=== PATIENT | female | born 1955 | race Caucasian/White ===

== ENCOUNTER 2018-01-19 14:26 | Observation (INO) | payer MEDICARE, OTHER ==
[~2018-01-19] VITALS: Ht 307.3 cm; Wt 42.6 kg
[~2018-01-19 14:26] MED LIST: ACET500T68 PO; CALC300T5 PO; CEPH-264 PO; CEPH250S2 PO; CLON1PAT9 TD; CLON1TAB3 PO; DIAZ2.5K2 RC; DOCU50LI PO; KCL 10% PO; LACO10SO PO; LACO50TA PO; LEVE100S18 PO; LEVO500T8 PO; LOPE1LIQ11 PO; LOPE1LIQ7 PO; LOPE1TAB4 PO; LORA2ORA2 PO; MAGN400O7 PO; ONDA4TAB10 SL; PHEN10VI PO; POLY255P PO; PROM25TA10 PO
[2018-01-19 15:10] LABS: BASO # 0.1 x10^3/uL (0.0-0.2); BASO % 2 % (0-3); EOS # 0.1 x10^3/uL (0.0-0.7); EOS % 3 % (0-3); HEMATOCRIT 43.8 % (36.0-47.0); HEMOGLOBIN 14.5 g/dL (12.0-15.5); LYMPH # 1.4 x10^3/uL (1.0-4.8); LYMPH % 29 % (24-48); MEAN CORPUSCULAR HEMOGLOBIN 30 pg (25-35); MEAN CORPUSCULAR HGB CONC 33 g/dL (31-37); MEAN CORPUSCULAR VOLUME 91 fL (79-100); MONO # 0.4 x10^3/uL (0.0-1.1); MONO % 8 % (0-9); NEUT # 2.8 x10^3uL (1.8-7.7); NEUT % 58 % (31-73); PLATELET COUNT 247 x10^3/uL (140-400); RED BLOOD COUNT 4.81 x10^6/uL (3.50-5.40); RED CELL DISTRIBUTION WIDTH 12.8 % (11.5-14.5); WHITE BLOOD COUNT 4.8 x10^3/uL (4.0-11.0)
[2018-01-19 15:21] LABS: CALCIUM 9.4 mg/dL (8.5-10.1); CREATININE 0.5 mg/dL (0.6-1.0); GFR 124.6; POTASSIUM 4.1 mmol/L (3.5-5.1); TOTAL BILIRUBIN 0.2 mg/dL (0.2-1.0); TOTAL PROTEIN 8.2 g/dL (6.4-8.2)
[2018-01-19 15:49] LABS: BACTERIA,URINE MOD /HPF (0-FEW); BILIRUBIN,URINE NEG (NEG); CLARITY,URINE CLOUDY; COLOR,URINE YELLOW; GLUCOSE,URINE NEG (NEG); NITRITE,URINE POS (NEG); UROBILINOGEN,URINE 2 mg/dL (0.2 mg/dL); WBC,URINE TNTC /HPF (0-4)
[2018-01-19] MEDS ORDERED: cefTRIAXone IV Push 1 GM VIAL. IVP ONE (16:00)
--- NOTE | 2018-01-19 16:05 | PHYS DOC ---
Past History Past Medical History: Seizure, Other Past Surgical History: No Surgical History, Other Smoking: Non-smoker Alcohol Use: None Drug Use: None Adult General Chief Complaint Chief Complaint: MULTIPLE COMPLAINTS HPI HPI Patient is a 62 year old F who presents with decreased level of responsiveness. Janna [facility] a [facility] her baseline is nonverbal. She is typically extremely agitated in particular in health care settings however starting this morning she was not as responsive as normal. Just prior to arrival her caregiver states that she had been intermittently responsive during the morning. She has no localizing symptoms. She has no recent medication changes. Review of Systems Review of Systems Unable to obtain review of systems due to baseline nonverbal status Family History Family History No pertinent family medical history was reported Current Medications Current Medications Current medications were reviewed Allergies Allergies Allergies Coded Allergies Type Severity Reaction Last Updated Verified No Known Drug Allergies 03/10/14 No Physical Exam Physical Exam Constitutional: Well developed, well nourished, no acute distress, non-toxic appearance. [] HENT: atraumatic Eyes: EOMI, conjunctiva normal, no discharge. [] Neck: Normal range of motion, no tenderness, supple, no stridor. [] Cardiovascular:Heart rate regular rhythm, Lungs & Thorax: Bilateral breath sounds clear to auscultation [] Abdomen: Bowel sounds normal, soft, no masses, no pulsatile masses. [] Mild suprapubic tenderness on palpation Skin: Warm, dry, no erythema, no rash. [] Extremities: Moves all extremities equally Exam was limited due to baseline mental status Current Patient Data Vital Signs Vital Signs Date Time Temp Pulse Resp B/P (MAP) Pulse Ox O2 Delivery O2 Flow Rate FiO2 01/19/18 16:26 98.9 54 18 97 Room Air Lab Results Laboratory Tests Test 01/19/18 15:00 White Blood Count 4.8 x10^3/uL (4.0-11.0) Red Blood Count 4.81 x10^6/uL (3.50-5.40) Hemoglobin 14.5 g/dL (12.0-15.5) Hematocrit 43.8 % (36.0-47.0) Mean Corpuscular Volume 91 fL (79-100) Mean Corpuscular Hemoglobin 30 pg (25-35) Mean Corpuscular Hemoglobin Concent 33 g/dL (31-37) Red Cell Distribution Width 12.8 % (11.5-14.5) Platelet Count 247 x10^3/uL (140-400) Neutrophils (%) (Auto) 58 % (31-73) Lymphocytes (%) (Auto) 29 % (24-48) Monocytes (%) (Auto) 8 % (0-9) Eosinophils (%) (Auto) 3 % (0-3) Basophils (%) (Auto) 2 % (0-3) Neutrophils # (Auto) 2.8 x10^3uL (1.8-7.7) Lymphocytes # (Auto) 1.4 x10^3/uL (1.0-4.8) Monocytes # (Auto) 0.4 x10^3/uL (0.0-1.1) Eosinophils # (Auto) 0.1 x10^3/uL (0.0-0.7) Basophils # (Auto) 0.1 x10^3/uL (0.0-0.2) Urine Collection Type U cath Urine Color Yellow Urine Clarity Cloudy Urine pH 6.0 Urine Specific [place] 1.020 Urine Protein 30 mg/dl (NEG-TRACE) Urine Glucose (UA) Neg mg/dL (NEG) Urine Ketones (Stick) Neg mg/dL (NEG) Urine Blood Small (NEG) Urine Nitrite Pos (NEG) Urine Bilirubin Neg (NEG) Urine Urobilinogen Dipstick 2 mg/dL (0.2 mg/dL) Urine Leukocyte Esterase Mod (NEG) Urine RBC 6-10 /HPF (0-2) Urine WBC Tntc /HPF (0-4) Urine Squamous Epithelial Cells None /LPF Urine Bacteria Mod /HPF (0-FEW) Sodium Level 148 mmol/L (136-145) H Potassium Level 4.1 mmol/L (3.5-5.1) Chloride Level 109 mmol/L (98-107) H Carbon Dioxide Level 31 mmol/L (21-32) Anion Gap 8 (6-14) Blood Urea Nitrogen 24 mg/dL (7-20) H Creatinine 0.5 mg/dL (0.6-1.0) L Estimated GFR (Cockcroft-Gault) 124.6 BUN/Creatinine Ratio 48 (6-20) H Glucose Level 86 mg/dL (70-99) Lactic Acid Level 1.3 mmol/L (0.4-2.0) Calcium Level 9.4 mg/dL (8.5-10.1) Total Bilirubin 0.2 mg/dL (0.2-1.0) Aspartate Amino Transferase (AST) 25 U/L (15-37) Alanine Aminotransferase (ALT) 27 U/L (14-59) Alkaline Phosphatase 179 U/L (46-116) H Total Protein 8.2 g/dL (6.4-8.2) Albumin 4.0 g/dL (3.4-5.0) Albumin/Globulin Ratio 1.0 (1.0-1.7) EKG EKG [] Radiology/Procedures Radiology/Procedures [] Course & Med Decision Making Course & Med Decision Making Pertinent Labs and Imaging studies reviewed. (See chart for details) [] Dragon Disclaimer Dragon Disclaimer This electronic medical record was generated, in whole or in part, using a voice recognition dictation system. Departure Departure: Impression: Primary Impression: UTI (urinary tract infection) Additional Impression: Altered mental status Disposition: ADMITTED INPATIENT Admitting Physician: Blane Miles Condition: STABLE Referrals: LAZARO CAMARGO MD (PCP) Problem Qualifiers Primary Impression: UTI (urinary tract infection) Urinary tract infection type: site unspecified Hematuria presence: with hematuria Qualified Codes: N39.0 - Urinary tract infection, site not specified ; R31.9 - Hematuria, unspecified Additional Impression: Altered mental status Altered mental status type: unspecified Qualified Codes: R41.82 - Altered mental status, unspecified NIDIA DELGADO MD Jan 19, 2018 16:05
[2018-01-19] MEDS ORDERED: ONDANSETRON PF 4 MG/2 ML VIAL. IV PRN (17:45)
[2018-01-19] MEDS: LACTOBACILLUS RHAMNOSUS GG 1 CAPSULE. PO SCH (21:16)
[2018-01-20 06:27] VITALS: BP 181/79
[2018-01-20 06:59] LABS: BASO # 0.1 x10^3/uL (0.0-0.2); BASO % 1 % (0-3); EOS # 0.1 x10^3/uL (0.0-0.7); EOS % 2 % (0-3); HEMATOCRIT 39.5 % (36.0-47.0); HEMOGLOBIN 13.4 g/dL (12.0-15.5); LYMPH # 1.3 x10^3/uL (1.0-4.8); LYMPH % 26 % (24-48); MEAN CORPUSCULAR HEMOGLOBIN 31 pg (25-35); MEAN CORPUSCULAR HGB CONC 34 g/dL (31-37); MEAN CORPUSCULAR VOLUME 90 fL (79-100); MONO # 0.5 x10^3/uL (0.0-1.1); MONO % 9 % (0-9); NEUT % 62 % (31-73); PLATELET COUNT 230 x10^3/uL (140-400); RED BLOOD COUNT 4.39 x10^6/uL (3.50-5.40); RED CELL DISTRIBUTION WIDTH 12.5 % (11.5-14.5); WHITE BLOOD COUNT 4.9 x10^3/uL (4.0-11.0)
[2018-01-20 07:01] LABS: CALCIUM 8.9 mg/dL (8.5-10.1); CREATININE 0.5 mg/dL (0.6-1.0); GFR 124.6; POTASSIUM 3.9 mmol/L (3.5-5.1)
--- NOTE | 2018-01-20 07:58 | PDOC1 ---
History of Present Illness Reason for Visit: Not herself History of Present Illness Pt sent from [facility] due to "not acting herself." Pt is reportedly agitated regularly, and yesterday was more subdued. She was dx w/ a UTI in the ER, and the retirement felt uncomfortable taking her home. She has a hx of CP and epilepsy. She is non-verbal. She refuses to let me examine her, grabbing my stethoscope and throwing it at me. 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[employer]: Seizure Musculoskeletal: Other (CP) Past Surgical History: No pertinent history Family History: No pertinent hx Past Social History Smoke: No Alcohol: none Drugs: None Lives: Alone Review of Systems Review Of Systems ROS unobtainable due to pt's non-verbal status Allergies: Coded Allergies: No Known Drug Allergies (Unverified , 03/10/14) Medications Current Medications Ceftriaxone Sodium 1 gm/ Sodium Chloride 50 ml @ 100 mls/hr 1X ONCE IV ; Start 01/19/18 at 16:00; Stop 01/19/18 at 16:29; Status UNV Ceftriaxone Sodium (Rocephin) 1 gm 1X ONCE IVP Last administered on 01/19/18at 16:05; Start 01/19/18 at 16:00; Stop 01/19/18 at 16:01; Status DC Ondansetron HCl (Zofran) 4 mg PRN Q4HRS PRN IV NAUSEA/VOMITING; Start 01/19/18 at 17:45; Stop 01/20/18 at 17:44 Ceftriaxone Sodium 1 gm/ Sodium Chloride 50 ml @ 100 mls/hr 1X ONCE IV ; Start 01/20/18 at 08:00; Stop 01/20/18 at 08:29; Status UNV Ceftriaxone Sodium (Rocephin) 1 gm 1X ONCE IVP ; Start 01/20/18 at 08:00; Stop 01/20/18 at 08:01 Lactobacillus Rhamnosus (Culturelle) 1 cap BID PO Last administered on at 21:16; Start 01/19/18 at 21:00 Active Scripts Active Cephalexin 250 Mg/5 Ml Susp.recon 10 Ml PO BID 5 Days Loperamide (Loperamide Hcl) 1 Mg/7.5 Ml Liquid 1 Mg PO TID PRN Zofran Odt (Ondansetron) 4 Mg Tab.rapdis 1 Tab SL Q8HRS PRN Reported Polyethylene Glycol 3350 255 Gm Powder 17 Gm PO DAILY PRN not given this admit LAST DOSE GIVEN: DATE: TIME: NEXT DOSE DUE: DATE: TODAY TIME: IF NEEDED Catapres-Tts 1 (Clonidine) 1 Each Patch.tdwk 1 Each TD WEEKLY LAST DOSE GIVEN: DATE: 02-13 TIME: NEXT DOSE DUE: DATE: 02-20 TIME: Imodium A-D (Loperamide Hcl) 1 Mg/7.5 Ml Liquid 2 Mg PO QID PRN LAST DOSE GIVEN: DATE: YESTERDAY TIME: AM NEXT DOSE DUE: DATE: TODAY TIME: IF NEEDED Clonazepam 1 Mg Tablet 1 Mg PO DAILY PRN LAST DOSE GIVEN: DATE: TODAY TIME: 9 AM NEXT DOSE DUE: DATE: TOMORROW TIME: AM Vimpat (Lacosamide) 10 Mg/1 Ml Solution 150 Mg PO BID LAST DOSE GIVEN: DATE: TODAY TIME: AM NEXT DOSE DUE: DATE: TODAY TIME: PM Lorazepam 2 Mg/1 Ml Oral.conc 2 Mg PO PRN Q6HRS PRN LAST DOSE GIVEN: DATE: YESTERDAY TIME: 9 PM NEXT DOSE DUE: DATE: TODAY TIME: WHEN NEEDED Levetiracetam 100 Mg/1 Ml Solution 1,500 Mg PO BID LAST DOSE GIVEN: DATE: TODAY TIME: AM NEXT DOSE DUE: DATE: TODAY TIME: PM Docusate Sodium 50 Mg/5 Ml Liquid 100 Mg PO BID LAST DOSE GIVEN: DATE: TIME: NEXT DOSE DUE: DATE: RESUME TIME: WHEN NEEDED Exam Vital Signs Vital Signs Date Time Temp Pulse Resp B/P (MAP) Pulse Ox O2 Delivery O2 Flow Rate FiO2 01/20/18 06:27 61 20 181/79 (113) 96 01/19/18 19:48 patient refused 01/19/18 16:26 98.9 General Appearance: Alert, Other (Uncooperative. No distress, much more agitated per staff) HEENT: Atraumatic, Mucous membr. moist/pink Respiratory: Other (No resp distress) Psych/Mental Status: Other (Non-verbal, MAEEW) Assessment/Plan Assessment/Plan 1. UTI: Pt on Rocephin. D/c later today w/ Keflex. Culture pending. 2. CP/Epilepsy: Cont home meds. 3. Disp: D/c today, pt on observation, appears back to baseline. COURSE Allergies Coded Allergies Type Severity Reaction Last Updated Verified No Known Drug Allergies 03/10/14 No Laboratory Tests Test 01/19/18 15:00 01/20/18 06:19 White Blood Count 4.8 x10^3/uL (4.0-11.0) 4.9 x10^3/uL (4.0-11.0) Red Blood Count 4.81 x10^6/uL (3.50-5.40) 4.39 x10^6/uL (3.50-5.40) Hemoglobin 14.5 g/dL (12.0-15.5) 13.4 g/dL (12.0-15.5) Hematocrit 43.8 % (36.0-47.0) 39.5 % (36.0-47.0) Mean Corpuscular Volume 91 fL (79-100) 90 fL (79-100) Mean Corpuscular Hemoglobin 30 pg (25-35) 31 pg (25-35) Mean Corpuscular Hemoglobin Concent 33 g/dL (31-37) 34 g/dL (31-37) Red Cell Distribution Width 12.8 % (11.5-14.5) 12.5 % (11.5-14.5) Platelet Count 247 x10^3/uL (140-400) 230 x10^3/uL (140-400) Neutrophils (%) (Auto) 58 % (31-73) 62 % (31-73) Lymphocytes (%) (Auto) 29 % (24-48) 26 % (24-48) Monocytes (%) (Auto) 8 % (0-9) 9 % (0-9) Eosinophils (%) (Auto) 3 % (0-3) 2 % (0-3) Basophils (%) (Auto) 2 % (0-3) 1 % (0-3) Neutrophils # (Auto) 2.8 x10^3uL (1.8-7.7) 3.0 x10^3uL (1.8-7.7) Lymphocytes # (Auto) 1.4 x10^3/uL (1.0-4.8) 1.3 x10^3/uL (1.0-4.8) Monocytes # (Auto) 0.4 x10^3/uL (0.0-1.1) 0.5 x10^3/uL (0.0-1.1) Eosinophils # (Auto) 0.1 x10^3/uL (0.0-0.7) 0.1 x10^3/uL (0.0-0.7) Basophils # (Auto) 0.1 x10^3/uL (0.0-0.2) 0.1 x10^3/uL (0.0-0.2) Urine Collection Type U cath Urine Color Yellow Urine Clarity Cloudy Urine pH 6.0 Urine Specific [place] 1.020 Urine Protein 30 mg/dl (NEG-TRACE) Urine Glucose (UA) Neg mg/dL (NEG) Urine Ketones (Stick) Neg mg/dL (NEG) Urine Blood Small (NEG) Urine Nitrite Pos (NEG) Urine Bilirubin Neg (NEG) Urine Urobilinogen Dipstick 2 mg/dL (0.2 mg/dL) Urine Leukocyte Esterase Mod (NEG) Urine RBC 6-10 /HPF (0-2) Urine WBC Tntc /HPF (0-4) Urine Squamous Epithelial Cells None /LPF Urine Bacteria Mod /HPF (0-FEW) Sodium Level 148 mmol/L (136-145) 146 mmol/L (136-145) Potassium Level 4.1 mmol/L (3.5-5.1) 3.9 mmol/L (3.5-5.1) Chloride Level 109 mmol/L (98-107) 108 mmol/L (98-107) Carbon Dioxide Level 31 mmol/L (21-32) 33 mmol/L (21-32) Anion Gap 8 (6-14) 5 (6-14) Blood Urea Nitrogen 24 mg/dL (7-20) 15 mg/dL (7-20) Creatinine 0.5 mg/dL (0.6-1.0) 0.5 mg/dL (0.6-1.0) Estimated GFR (Cockcroft-Gault) 124.6 124.6 BUN/Creatinine Ratio 48 (6-20) Glucose Level 86 mg/dL (70-99) 85 mg/dL (70-99) Lactic Acid Level 1.3 mmol/L (0.4-2.0) Calcium Level 9.4 mg/dL (8.5-10.1) 8.9 mg/dL (8.5-10.1) Total Bilirubin 0.2 mg/dL (0.2-1.0) Aspartate Amino Transf (AST/SGOT) 25 U/L (15-37) Alanine Aminotransferase (ALT/SGPT) 27 U/L (14-59) Alkaline Phosphatase 179 U/L (46-116) Total Protein 8.2 g/dL (6.4-8.2) Albumin 4.0 g/dL (3.4-5.0) Albumin/Globulin Ratio 1.0 (1.0-1.7) Current Medications Medications (Trade) Dose Ordered Sig/Wm Route PRN Reason Start Time Stop Time Status Last Admin Dose Admin Ceftriaxone Sodium 1 gm/ Sodium Chloride 50 ml @ 100 mls/hr 1X ONCE IV 01/19/18 16:00 01/19/18 16:29 UNV Ceftriaxone Sodium (Rocephin) 1 gm 1X ONCE IVP 01/19/18 16:00 01/19/18 16:01 DC 01/19/18 16:05 Ondansetron HCl (Zofran) 4 mg PRN Q4HRS PRN IV NAUSEA/VOMITING 01/19/18 17:45 01/20/18 17:44 Ceftriaxone Sodium 1 gm/ Sodium Chloride 50 ml @ 100 mls/hr 1X ONCE IV 01/20/18 08:00 01/20/18 08:29 UNV Ceftriaxone Sodium (Rocephin) 1 gm 1X ONCE IVP 01/20/18 08:00 01/20/18 08:01 Lactobacillus Rhamnosus (Culturelle) 1 cap BID PO 01/19/18 21:00 01/19/18 21:16 Vital Signs Date Time Temp Pulse Resp B/P (MAP) Pulse Ox O2 Delivery O2 Flow Rate FiO2 01/20/18 06:27 61 20 181/79 (113) 96 01/19/18 19:48 patient refused 01/19/18 16:26 98.9 GLORIA NINO MD Jan 20, 2018 07:58
[2018-01-20] MEDS ORDERED: LOPERAMIDE HCL 1 MG PO PRN (08:00)
[2018-01-20] MEDS ORDERED: LORazepam INTENSOL 2 MG/ML BOTTLE PO PRN (08:00)
[2018-01-20] MEDS ORDERED: ONDANSETRON ODT 4 MG TAB.RAPDIS PO PRN (08:00)
[2018-01-20] MEDS ORDERED: clonazePAM 1 MG TABLET PO PRN (08:00)
[2018-01-20] MEDS ORDERED: cefTRIAXone IV Push 1 GM VIAL. IVP ONE (08:00)
[2018-01-20] MEDS ORDERED: LOPERAMIDE 2 MG CAPSULE PO PRN (08:15)
[2018-01-20] MEDS ORDERED: POLYETHYLENE GLYCOL 3350 17 GM PACKET. PO PRN (09:00)
[2018-01-20] MEDS ORDERED: LORazepam 2 MG/ML VIAL IV ONE (09:00)
[2018-01-20] MEDS ORDERED: cloNIDine TTS-1 1 PATCH PATCH TD SCH (09:00)
[2018-01-20] MEDS: LACTOBACILLUS RHAMNOSUS GG 1 CAPSULE. PO SCH ×2 (09:00→09:22)
[2018-01-20] MEDS: DOCUSATE 100 MG/10 ML SOLUTION. PO SCH ×2 (09:00→09:22)
[2018-01-20] MEDS: LACOSAMIDE 50 MG TABLET PO SCH ×2 (09:00→09:22)
[2018-01-20 11:00] VITALS: BP 101/78
--- NOTE | 2018-01-20 12:55 | DISCH ---
DISCHARGE INSTRUCTIONS-DC Condition on Discharge Condition on Discharge: Stable Problems: Activity after Discharge Activity Instructions for Disc: No restrictions Diet after Discharge Diet after Discharge: Regular Contacting the DR. after DC Call your doctor for: If your condition worsens Follow-Up Follow up with: F/u with PCP in 1-2 weeks GLORIA NINO MD Jan 20, 2018 12:55
--- NOTE | 2018-01-20 12:59 | PDOC3 ---
Discharge Summary Discharge Summary Date of Admission Date of Admission: Jan 19, 2018 at 16:50 Admitting Diagnosis UTI Altered mentation from baseline Seizure d/o MR Date of Discharge: Jan 20, 2018 Discharge Diagnosis UTI Altered mentation from baseline Seizure d/o MR Laboratory Findings Laboratory Tests Test 01/19/18 15:00 01/20/18 06:19 White Blood Count 4.8 x10^3/uL (4.0-11.0) 4.9 x10^3/uL (4.0-11.0) Red Blood Count 4.81 x10^6/uL (3.50-5.40) 4.39 x10^6/uL (3.50-5.40) Hemoglobin 14.5 g/dL (12.0-15.5) 13.4 g/dL (12.0-15.5) Hematocrit 43.8 % (36.0-47.0) 39.5 % (36.0-47.0) Mean Corpuscular Volume 91 fL (79-100) 90 fL (79-100) Mean Corpuscular Hemoglobin 30 pg (25-35) 31 pg (25-35) Mean Corpuscular Hemoglobin Concent 33 g/dL (31-37) 34 g/dL (31-37) Red Cell Distribution Width 12.8 % (11.5-14.5) 12.5 % (11.5-14.5) Platelet Count 247 x10^3/uL (140-400) 230 x10^3/uL (140-400) Neutrophils (%) (Auto) 58 % (31-73) 62 % (31-73) Lymphocytes (%) (Auto) 29 % (24-48) 26 % (24-48) Monocytes (%) (Auto) 8 % (0-9) 9 % (0-9) Eosinophils (%) (Auto) 3 % (0-3) 2 % (0-3) Basophils (%) (Auto) 2 % (0-3) 1 % (0-3) Neutrophils # (Auto) 2.8 x10^3uL (1.8-7.7) 3.0 x10^3uL (1.8-7.7) Lymphocytes # (Auto) 1.4 x10^3/uL (1.0-4.8) 1.3 x10^3/uL (1.0-4.8) Monocytes # (Auto) 0.4 x10^3/uL (0.0-1.1) 0.5 x10^3/uL (0.0-1.1) Eosinophils # (Auto) 0.1 x10^3/uL (0.0-0.7) 0.1 x10^3/uL (0.0-0.7) Basophils # (Auto) 0.1 x10^3/uL (0.0-0.2) 0.1 x10^3/uL (0.0-0.2) Urine Collection Type U cath Urine Color Yellow Urine Clarity Cloudy Urine pH 6.0 Urine Specific [place] 1.020 Urine Protein 30 mg/dl (NEG-TRACE) Urine Glucose (UA) Neg mg/dL (NEG) Urine Ketones (Stick) Neg mg/dL (NEG) Urine Blood Small (NEG) Urine Nitrite Pos (NEG) Urine Bilirubin Neg (NEG) Urine Urobilinogen Dipstick 2 mg/dL (0.2 mg/dL) Urine Leukocyte Esterase Mod (NEG) Urine RBC 6-10 /HPF (0-2) Urine WBC Tntc /HPF (0-4) Urine Squamous Epithelial Cells None /LPF Urine Bacteria Mod /HPF (0-FEW) Sodium Level 148 mmol/L (136-145) 146 mmol/L (136-145) Potassium Level 4.1 mmol/L (3.5-5.1) 3.9 mmol/L (3.5-5.1) Chloride Level 109 mmol/L (98-107) 108 mmol/L (98-107) Carbon Dioxide Level 31 mmol/L (21-32) 33 mmol/L (21-32) Anion Gap 8 (6-14) 5 (6-14) Blood Urea Nitrogen 24 mg/dL (7-20) 15 mg/dL (7-20) Creatinine 0.5 mg/dL (0.6-1.0) 0.5 mg/dL (0.6-1.0) Estimated GFR (Cockcroft-Gault) 124.6 124.6 BUN/Creatinine Ratio 48 (6-20) Glucose Level 86 mg/dL (70-99) 85 mg/dL (70-99) Lactic Acid Level 1.3 mmol/L (0.4-2.0) Calcium Level 9.4 mg/dL (8.5-10.1) 8.9 mg/dL (8.5-10.1) Total Bilirubin 0.2 mg/dL (0.2-1.0) Aspartate Amino Transf (AST/SGOT) 25 U/L (15-37) Alanine Aminotransferase (ALT/SGPT) 27 U/L (14-59) Alkaline Phosphatase 179 U/L (46-116) Total Protein 8.2 g/dL (6.4-8.2) Albumin 4.0 g/dL (3.4-5.0) Albumin/Globulin Ratio 1.0 (1.0-1.7) Hospital Course Pt sent from custodial due to not being as agitated as she usually is. Dx w/ UTI. Labs were unremarkable. Urine culture is pending. Pt treated w/ IV Rocephin. No signs of sepsis. By morning of 01/20, pt back to baseline. Will be sent home on 5 days of Keflex and the rest of her home meds. Pt should f/u with PCP in 1-2 weeks. Condition at Discharge: Stable Home Meds Active Scripts Cephalexin (CEPHALEXIN) 250 Mg/5 Ml Susp.recon, 10 ML PO BID for 5 Days, ML 0 Refills Prov:HALEIGH TREVIÑO MD 04/22/16 Loperamide Hcl (LOPERAMIDE) 1 Mg/7.5 Ml Liquid, 1 MG PO TID Y for DIARRHEA, # 120 LIQUID 0 Refills Prov:HALEIGH TREVIÑO MD 04/22/16 Ondansetron (ZOFRAN ODT) 4 Mg Tab.rapdis, 1 TAB SL Q8HRS Y for VOMITING, #10 TAB 0 Refills Prov:HALEIGH TREVIÑO MD 04/22/16 Reported Medications Polyethylene Glycol 3350 (POLYETHYLENE GLYCOL 3350) 255 Gm Powder, 17 GM PO DAILY Y for CONSTIPATION, #527 GM not given this admit LAST DOSE GIVEN: DATE: TIME: NEXT DOSE DUE: DATE: TODAY TIME: IF NEEDED 12/19/15 Clonidine (CATAPRES-TTS 1) 1 Each Patch.tdwk, 1 EACH TD WEEKLY for HIGH BLOOD PRESSURE LAST DOSE GIVEN: DATE: 02-13 TIME: NEXT DOSE DUE: DATE: 02-20 TIME: 12/19/15 Loperamide Hcl (IMODIUM A-D) 1 Mg/7.5 Ml Liquid, 2 MG PO QID Y for DIARRHEA LAST DOSE GIVEN: DATE: YESTERDAY TIME: AM NEXT DOSE DUE: DATE: TODAY TIME: IF NEEDED 11/04/15 Clonazepam (CLONAZEPAM) 1 Mg Tablet, 1 MG PO DAILY Y for ANXIETY / AGITATION LAST DOSE GIVEN: DATE: TODAY TIME: 9 AM NEXT DOSE DUE: DATE: TOMORROW TIME: AM 11/04/15 Lacosamide (VIMPAT) 10 Mg/1 Ml Solution, 150 MG PO BID for seizures LAST DOSE GIVEN: DATE: TODAY TIME: AM NEXT DOSE DUE: DATE: TODAY TIME: PM 11/04/15 Lorazepam (LORAZEPAM) 2 Mg/1 Ml Oral.conc, 2 MG PO PRN Q6HRS Y for ANXIETY / AGITATION LAST DOSE GIVEN: DATE: YESTERDAY TIME: 9 PM NEXT DOSE DUE: DATE: TODAY TIME: WHEN NEEDED 01/29/15 Levetiracetam (LEVETIRACETAM) 100 Mg/1 Ml Solution, 1500 MG PO BID for seizures LAST DOSE GIVEN: DATE: TODAY TIME: AM NEXT DOSE DUE: DATE: TODAY TIME: PM 01/29/15 Docusate Sodium (DOCUSATE SODIUM) 50 Mg/5 Ml Liquid, 100 MG PO BID for constipation LAST DOSE GIVEN: DATE: TIME: NEXT DOSE DUE: DATE: RESUME TIME: WHEN NEEDED 01/29/15 Inpatient Meds Current Medications Ceftriaxone Sodium 1 gm/ Sodium Chloride 50 ml @ 100 mls/hr 1X ONCE IV ; Start 01/19/18 at 16:00; Stop 01/19/18 at 16:29; Status UNV Ceftriaxone Sodium (Rocephin) 1 gm 1X ONCE IVP Last administered on 01/19/18at 16:05; Start 01/19/18 at 16:00; Stop 01/19/18 at 16:01; Status DC Ondansetron HCl (Zofran) 4 mg PRN Q4HRS PRN IV NAUSEA/VOMITING; Start 01/19/18 at 17:45; Stop 01/20/18 at 17:44 Ceftriaxone Sodium 1 gm/ Sodium Chloride 50 ml @ 100 mls/hr 1X ONCE IV ; Start 01/20/18 at 08:00; Stop 01/20/18 at 08:29; Status UNV Ceftriaxone Sodium (Rocephin) 1 gm 1X ONCE IVP Last administered on 01/20/18at 08:45; Start 01/20/18 at 08:00; Stop 01/20/18 at 08:01; Status DC Lactobacillus Rhamnosus (Culturelle) 1 cap BID PO Last administered on at 21:16; Start 01/19/18 at 21:00 Clonazepam (KlonoPIN) 1 mg DAILY PRN PO ANXIETY / AGITATION; Start 01/20/18 at 08:00 Clonidine HCl (Catapres Tts-1) 1 patch WEEKLY TD Last administered on at 09:29; Start 01/20/18 at 09:00 Docusate Sodium (Colace Solution) 100 mg BID PO ; Start 01/20/18 at 09:00 Levetiracetam (Keppra) 1,500 mg BID PO ; Start 01/20/18 at 09:00; Stop 01/20/18 at 09:00; Status DC Lorazepam (Ativan Intensol) 2 mg PRN Q6HRS PRN PO ANXIETY / AGITATION; Start at 08:00 Ondansetron HCl (Zofran Odt) 4 mg Q8HRS PRN PO VOMITING; Start 01/20/18 at 08: 00 Polyethylene Glycol (miraLAX) 17 gm PRN DAILY PRN PO CONSTIPATION; Start at 09:00 Lacosamide (Vimpat) 150 mg BID PO ; Start 01/20/18 at 09:00 Loperamide HCl (Imodium) 2 mg PRN QID PRN PO DIARRHEA; Start 01/20/18 at 08:15 Non-Formulary Medication (Loperamide Hcl (Loperamide)) 1 mg TID PRN PO DIARRHEA ; Start 01/20/18 at 08:00; Status UNV Lorazepam (Ativan) 0.5 mg 1X ONCE IV ; Start 01/20/18 at 09:00; Stop 01/20/18 at 09:01; Status DC Levetiracetam 500 mg/Sodium Chloride 100 ml @ 400 mls/hr Q12HR IV Last administered on 01/20/18at 09:19; Start 01/20/18 at 09:00 Active Scripts Active Cephalexin 250 Mg/5 Ml Susp.recon 10 Ml PO BID 5 Days Loperamide (Loperamide Hcl) 1 Mg/7.5 Ml Liquid 1 Mg PO TID PRN Zofran Odt (Ondansetron) 4 Mg Tab.rapdis 1 Tab SL Q8HRS PRN Reported Polyethylene Glycol 3350 255 Gm Powder 17 Gm PO DAILY PRN not given this admit LAST DOSE GIVEN: DATE: TIME: NEXT DOSE DUE: DATE: TODAY TIME: IF NEEDED Catapres-Tts 1 (Clonidine) 1 Each Patch.tdwk 1 Each TD WEEKLY LAST DOSE GIVEN: DATE: 02-13 TIME: NEXT DOSE DUE: DATE: 02-20 TIME: Imodium A-D (Loperamide Hcl) 1 Mg/7.5 Ml Liquid 2 Mg PO QID PRN LAST DOSE GIVEN: DATE: YESTERDAY TIME: AM NEXT DOSE DUE: DATE: TODAY TIME: IF NEEDED Clonazepam 1 Mg Tablet 1 Mg PO DAILY PRN LAST DOSE GIVEN: DATE: TODAY TIME: 9 AM NEXT DOSE DUE: DATE: TOMORROW TIME: AM Vimpat (Lacosamide) 10 Mg/1 Ml Solution 150 Mg PO BID LAST DOSE GIVEN: DATE: TODAY TIME: AM NEXT DOSE DUE: DATE: TODAY TIME: PM Lorazepam 2 Mg/1 Ml Oral.conc 2 Mg PO PRN Q6HRS PRN LAST DOSE GIVEN: DATE: YESTERDAY TIME: 9 PM NEXT DOSE DUE: DATE: TODAY TIME: WHEN NEEDED Levetiracetam 100 Mg/1 Ml Solution 1,500 Mg PO BID LAST DOSE GIVEN: DATE: TODAY TIME: AM NEXT DOSE DUE: DATE: TODAY TIME: PM Docusate Sodium 50 Mg/5 Ml Liquid 100 Mg PO BID LAST DOSE GIVEN: DATE: TIME: NEXT DOSE DUE: DATE: RESUME TIME: WHEN NEEDED Activity: as tolerated Diet: Regular Follow-up Plan F/u with PCP in 1-2 weeks. GLORIA NINO MD Jan 20, 2018 12:59
[2018-01-20] MEDS ORDERED: CEPH250S2 PO (14:01)
[2018-01-21] MEDS ORDERED: IBUP200T44 PO (20:02)
== END 2018-01-20 15:30 | disposition short-term general hospital (02) ==
LOC: ER 14:26 → 1 SOUTH 16:50
PROVIDERS: ADMIT Family Medicine; ATTEND Family Medicine
DX: N39.0 Urinary tract infection, site not specified (principal); G40.909 Epilepsy, unspecified, not intractable, without status epilepticus; K59.00 Constipation, unspecified
CPT/HCPCS: 96365; 96375; 96376; 99285; G0378; J0696; J1953; 36415; 80048; 80053; 81001; 83605; 85025; 87040; 87205; 87641; G0379

== ENCOUNTER 2018-01-20 18:30 | Emergency (ER) | payer MEDICARE, OTHER ==
[~2018-01-20] VITALS: Ht 307.3 cm; Wt 48.0 kg
[2018-01-20] MEDS ORDERED: LORazepam 2 MG/ML VIAL IV ONE (19:00)
--- NOTE | 2018-01-20 19:03 | PHYS DOC ---
Past History Past Medical History: Seizure, UTI, Other Past Surgical History: No Surgical History Smoking: Non-smoker Alcohol Use: None Drug Use: None Adult General Chief Complaint Chief Complaint: SEIZURE HPI HPI Patient is a 62-year-old female with a history of CP, dementia, nonverbal, recent UTI who presents here today secondary to seizure that lasted longer than baseline. Patient's caregivers at bedside reports patient has multiple seizures that usually lasts approximately 1 minute each however this seizure lasted longer than usual so the patient was dispatched to the ER for evaluation. Patient was just recently discharged from the hospital this morning with a diagnosis of urinary tract infection and was started on Rocephin IV in the ER and was discharged back to the facility on cephalexin. Patient is currently on Keppra for seizures and is currently on Ativan as well too. Patient was given Ativan IV to assist with sedation. Review of systems: Unable to assess secondary to patient being nonverbal Constitutional: Well developed, well nourished, no acute distress, non-toxic appearance. HENT: Normocephalic, atraumatic, Eyes: EOMI, conjunctiva normal, no discharge. Neck: Normal range of motion, no tenderness, supple, no stridor. Cardiovascular:Heart rate regular rhythm Lungs & Thorax: Bilateral breath sounds clear to auscultation no respiratory distress Abdomen: Bowel sounds normal, soft, no tenderness, no masses, no pulsatile masses. Skin: Warm, dry, no erythema, no rash. Back: No tenderness Extremities no edema. Neurologic: Alert and awake. Patient's baseline per caregiver. Psychologic: Affect normal/baseline 62-year-old female with a history significant for seizure disorder presents here today secondary to a seizure at the nursing facility that lasted slightly longer than baseline. In the ER the patient will have basic labs were drawn today. [His morning were normal however they will be repeated to make sure there are no reflexes or changes. Patient's vital signs are all within normal limits and per the caregiver the patient is completely back to baseline at present. Patient be given 1 mg of IV Ativan to assist with sedation. Here in the ED. If labs are unremarkable the patient remains stable in the ED and seizure-free she'll be stable for discharge back to her facility. Current Medications Current Medications Current Medications Medications (Trade) Dose Ordered Sig/Wm Start Time Stop Time Status Last Admin Dose Admin Lorazepam (Ativan) 1 mg 1X ONCE 01/20/18 19:00 01/20/18 19:01 Allergies Allergies Allergies Coded Allergies Type Severity Reaction Last Updated Verified No Known Drug Allergies 03/10/14 No Current Patient Data Vital Signs Vital Signs Date Time Temp Pulse Resp B/P (MAP) Pulse Ox O2 Delivery O2 Flow Rate FiO2 01/20/18 18:33 98.0 76 18 98 Room Air EKG EKG [] Radiology/Procedures Radiology/Procedures [] Course & Med Decision Making Course & Med Decision Making Pertinent Labs and Imaging studies reviewed. (See chart for details) [] Dragon Disclaimer Dragon Disclaimer This electronic medical record was generated, in whole or in part, using a voice recognition dictation system. Departure Departure: Impression: Primary Impression: Seizure Additional Impressions: Seizure disorder Urinary tract infection Breakthrough seizure Disposition: 03 XFER SNF Condition: STABLE Referrals: LAZARO CAMARGO MD (PCP) Patient Instructions: Seizure Disorder, Child, Generalized Tonic-Clonic Problem Qualifiers LEENA ARGUETA MD Jan 20, 2018 19:03
[2018-01-20 19:24] LABS: CALCIUM 9.3 mg/dL (8.5-10.1); CREATININE 0.5 mg/dL (0.6-1.0); GFR 124.6
[2018-01-20 19:30] LABS: HEMATOCRIT 42.1 % (36.0-47.0); HEMOGLOBIN 14.1 g/dL (12.0-15.5); MEAN CORPUSCULAR HEMOGLOBIN 30 pg (25-35); MEAN CORPUSCULAR HGB CONC 34 g/dL (31-37); MEAN CORPUSCULAR VOLUME 90 fL (79-100); RED CELL DISTRIBUTION WIDTH 12.2 % (11.5-14.5); WHITE BLOOD COUNT 6.7 x10^3/uL (4.0-11.0)
[2018-01-20 19:31] LABS: BASO % 1 % (0-3); EOS % 1 % (0-3); LYMPH # 2.1 x10^3/uL (1.0-4.8); LYMPH % 32 % (24-48); MONO # 0.7 x10^3/uL (0.0-1.1); MONO % 11 % (0-9); NEUT # 3.8 x10^3uL (1.8-7.7); NEUT % 56 % (31-73); PLATELET COUNT 180 x10^3/uL (140-400)
[2018-01-20 19:32] VITALS: BP 166/98
[2018-01-20 21:07] LABS: % EOS 1 % (0-5); % LYMPHS 33 % (24-48); % MONOS 5 % (0-10); % SEGS 58 % (35-66)
[2018-01-20 21:22] LABS: PLT ESTIMATE ADEQUATE (ADEQUATE)
[2018-01-20 21:23] LABS: % ATYL 3 % (0-0)
[2018-01-21] MEDS ORDERED: IBUP200T44 PO (20:02)
== END 2018-01-20 19:29 ==
LOC: ER 18:30
DX: G40.909 Epilepsy, unspecified, not intractable, without status epilepticus (principal); N39.0 Urinary tract infection, site not specified; F03.90 Unspecified dementia, unspecified severity, without behavioral disturbance, psychotic disturbance, mood disturbance, and anxiety; Z87.440 Personal history of urinary (tract) infections
CPT/HCPCS: 99285; J2060; 36415; 80048; 85007; 85025; 96374

== ENCOUNTER 2018-01-21 18:53 | Inpatient (IN) | payer MEDICARE, OTHER ==
[~2018-01-21] VITALS: Ht 154.9 cm; Wt 42.7 kg
[2018-01-21 19:53] VITALS: BP 170/77
[2018-01-21] MEDS ORDERED: IBUP200T44 PO (20:02)
[2018-01-21] MEDS ORDERED: ONDANSETRON ODT 4 MG TAB.RAPDIS PO PRN (20:15)
[2018-01-21] MEDS ORDERED: LORazepam INTENSOL 2 MG/ML BOTTLE PO PRN (20:15)
[2018-01-21] MEDS ORDERED: IBUPROFEN 100 MG/5 ML ORAL.SUSP. PO PRN (20:30)
[2018-01-21] MEDS ORDERED: LOPERAMIDE 2 MG/10 ML PO PRN (20:30)
[2018-01-21] MEDS: LACOSAMIDE 50 MG TABLET PO SCH (21:01)
[2018-01-21] MEDS: DOCUSATE 100 MG/10 ML SOLUTION. PO SCH (21:01)
[2018-01-21 23:23] VITALS: BP 167/81
[2018-01-22 05:30] VITALS: BP 171/74
[2018-01-22 06:57] LABS: BASO # 0.1 x10^3/uL (0.0-0.2); BASO % 2 % (0-3); EOS # 0.1 x10^3/uL (0.0-0.7); EOS % 2 % (0-3); HEMATOCRIT 40.3 % (36.0-47.0); HEMOGLOBIN 13.4 g/dL (12.0-15.5); LYMPH # 1.9 x10^3/uL (1.0-4.8); LYMPH % 40 % (24-48); MEAN CORPUSCULAR HEMOGLOBIN 30 pg (25-35); MEAN CORPUSCULAR HGB CONC 33 g/dL (31-37); MEAN CORPUSCULAR VOLUME 91 fL (79-100); MONO # 0.7 x10^3/uL (0.0-1.1); MONO % 14 % (0-9); NEUT # 2.1 x10^3uL (1.8-7.7); NEUT % 43 % (31-73); PLATELET COUNT 223 x10^3/uL (140-400); RED BLOOD COUNT 4.42 x10^6/uL (3.50-5.40); RED CELL DISTRIBUTION WIDTH 12.6 % (11.5-14.5); WHITE BLOOD COUNT 4.8 x10^3/uL (4.0-11.0)
[2018-01-22 07:03] LABS: ALBUMIN 3.3 g/dL (3.4-5.0); ALBUMIN/GLOBULIN RATIO 0.9 (1.0-1.7); CALCIUM 8.8 mg/dL (8.5-10.1); CREATININE 0.5 mg/dL (0.6-1.0); GFR 124.6; POTASSIUM 3.1 mmol/L (3.5-5.1); TOTAL BILIRUBIN 0.3 mg/dL (0.2-1.0)
[2018-01-22] MEDS: POTASSIUM CHLORIDE 20 MEQ/15 ML ORAL LIQUID. PO ONE ×2 (08:15→08:32)
[2018-01-22] MEDS: DOCUSATE 100 MG/10 ML SOLUTION. PO SCH ×5 (08:31→21:00)
[2018-01-22] MEDS: LACOSAMIDE 50 MG TABLET PO SCH ×3 (08:32→18:57)
[2018-01-22] MEDS ORDERED: POLYETHYLENE GLYCOL 3350 17 GM PACKET. PO PRN (09:00)
[2018-01-22 11:05] VITALS: BP 111/40
[2018-01-22] MEDS ORDERED: POTASSIUM CL 40MEQ D5-0.45NACL 1,000 ML IV ONE (14:30)
--- NOTE | 2018-01-22 14:42 | PDOC1 ---
History of Present Illness Reason for Visit: Bacteremia History of Present Illness Pt was just discharged 01/20 from the hospital, where she was treated for a UTI. Unfortunately, 1/4 of her blood cultures came back positive for gram positive cocci. This is likely a contaminant, but pt lives in a intermediate and the staff has been uncomfortable monitoring her for issues like this, so we are treating her empirically w/ Ancef pending confirmation of the final culture result. Per nurse, pt refusing to take PO here, though she was doing so at the intermediate. Pt is non-verbal. Chief Complaint: Bacteremia Allergies: Coded Allergies: No Known Drug Allergies (Unverified , 03/10/14) Past Medical History [facility] [employer]: Seizure Past Surgical History: No pertinent history Family History: No pertinent hx Past Social History Smoke: No Alcohol: none Drugs: None Lives: Alone (Jail) Review of Systems Review Of Systems ROS unobtainable due to pt's non-verbal status Allergies: Coded Allergies: No Known Drug Allergies (Unverified , 03/10/14) Medications Current Medications Clonazepam (KlonoPIN) 1 mg PRN BID PRN PO ANXIETY / AGITATION; Start 01/21/18 at 20:15 Clonidine HCl (Catapres Tts-1) 1 patch WEEKLY TD ; Start 01/28/18 at 09:00 Docusate Sodium (Colace Solution) 100 mg BID PO Last administered on 01/21/18at 21:01; Start 01/21/18 at 21:00 Ibuprofen (Motrin) 600 mg PRN BID PRN PO PAIN; Start 01/21/18 at 20:30 Levetiracetam (Keppra) 1,500 mg BID PO Last administered on 01/22/18at 08:31; Start 01/21/18 at 21:00 Lorazepam (Ativan Intensol) 2 mg PRN Q6HRS PRN PO ANXIETY / AGITATION; Start at 20:15 Ondansetron HCl (Zofran Odt) 4 mg PRN Q8HRS PRN PO NAUSEA/VOMITING; Start 01/21 at 20:15 Polyethylene Glycol (miraLAX) 17 gm PRN DAILY PRN PO CONSTIPATION; Start at 09:00 Lacosamide (Vimpat) 150 mg BID PO Last administered on 01/21/18at 21:01; Start 01/21/18 at 21:00 Loperamide HCl (Immodium) 2 mg TID PRN PRN PO DIARRHEA; Start 01/21/18 at 20:30 Cefazolin Sodium 1 gm/Sodium Chloride 50 ml @ 100 mls/hr Q8HRS IV Last administered on 01/22/18at 05:17; Start 01/21/18 at 22:00 Potassium Chloride (KCl Oral Soln) 40 meq 1X ONCE PO ; Start 01/22/18 at 08:15 ; Stop 01/22/18 at 14:28; Status DC Potassium Chloride/Dextrose/ Sod Cl 1,000 ml @ 125 mls/hr 1X ONCE IV ; Start 01/22/18 at 14:30; Stop 01/22/18 at 22:29 Levetiracetam 1000 mg/Sodium Chloride 100 ml @ 400 mls/hr Q12HR IV ; Start at 21:00; Status UNV Active Scripts Active Cephalexin 250 Mg/5 Ml Susp.recon 10 Ml PO BID Loperamide (Loperamide Hcl) 1 Mg/7.5 Ml Liquid 1 Mg PO TID PRN Zofran Odt (Ondansetron) 4 Mg Tab.rapdis 1 Tab SL Q8HRS PRN Reported Motrin Ib (Ibuprofen) 200 Mg Tablet 600 Mg PO PRN BID PRN Polyethylene Glycol 3350 255 Gm Powder 17 Gm PO DAILY PRN not given this admit LAST DOSE GIVEN: DATE:has not had TIME: NEXT DOSE DUE: DATE: TODAY TIME: IF NEEDED Catapres-Tts 1 (Clonidine) 1 Each Patch.tdwk 1 Each TD WEEKLY LAST DOSE GIVEN: DATE: 01/20 TIME: NEXT DOSE DUE: DATE: 01/23 TIME: Clonazepam 1 Mg Tablet 1 Mg PO PRN BID PRN LAST DOSE GIVEN: DATE: has not had TIME: NEXT DOSE DUE: DATE: has not had TIME: Vimpat (Lacosamide) 10 Mg/1 Ml Solution 150 Mg PO BID LAST DOSE GIVEN: DATE: has not had TIME: NEXT DOSE DUE: DATE: TODAY TIME: PM Lorazepam 2 Mg/1 Ml Oral.conc 2 Mg PO PRN Q6HRS PRN LAST DOSE GIVEN: DATE: has not had TIME: NEXT DOSE DUE: DATE: TODAY TIME: WHEN NEEDED Levetiracetam 100 Mg/1 Ml Solution 1,500 Mg PO BID LAST DOSE GIVEN: DATE: TODAY TIME: AM NEXT DOSE DUE: DATE: TODAY TIME: PM Docusate Sodium 50 Mg/5 Ml Liquid 100 Mg PO BID LAST DOSE GIVEN: DATE:has not had TIME: NEXT DOSE DUE: DATE: RESUME TIME: WHEN NEEDED Exam Vital Signs Vital Signs Date Time Temp Pulse Resp B/P (MAP) Pulse Ox O2 Delivery O2 Flow Rate FiO2 01/22/18 11:05 92 18 111/40 (63) 95 Room Air 01/22/18 05:30 97.9 Psych/Mental Status: Other (Pt is lying in bed, agitated, shoves me away and will not allow me close to examine her. There are no obvious rashes, she does not appear toxic. Mouth is moist. ) Assessment/Plan Assessment/Plan 1. Positive blood culture: Treat w/ Ancef pending confirmation of ID/sens. No sign of sepsis. 2. Seizure d/o: Will give IV Keppra while pt not taking po 3. Hypokalemia: Replace w/ IV, pt refused PO. 4. UTI: On Ancef. 5. DVT proph: Heparin. COURSE Allergies Coded Allergies Type Severity Reaction Last Updated Verified No Known Drug Allergies 03/10/14 No Laboratory Tests Test 01/22/18 06:37 White Blood Count 4.8 x10^3/uL (4.0-11.0) Red Blood Count 4.42 x10^6/uL (3.50-5.40) Hemoglobin 13.4 g/dL (12.0-15.5) Hematocrit 40.3 % (36.0-47.0) Mean Corpuscular Volume 91 fL (79-100) Mean Corpuscular Hemoglobin 30 pg (25-35) Mean Corpuscular Hemoglobin Concent 33 g/dL (31-37) Red Cell Distribution Width 12.6 % (11.5-14.5) Platelet Count 223 x10^3/uL (140-400) Neutrophils (%) (Auto) 43 % (31-73) Lymphocytes (%) (Auto) 40 % (24-48) Monocytes (%) (Auto) 14 % (0-9) Eosinophils (%) (Auto) 2 % (0-3) Basophils (%) (Auto) 2 % (0-3) Neutrophils # (Auto) 2.1 x10^3uL (1.8-7.7) Lymphocytes # (Auto) 1.9 x10^3/uL (1.0-4.8) Monocytes # (Auto) 0.7 x10^3/uL (0.0-1.1) Eosinophils # (Auto) 0.1 x10^3/uL (0.0-0.7) Basophils # (Auto) 0.1 x10^3/uL (0.0-0.2) Sodium Level 147 mmol/L (136-145) Potassium Level 3.1 mmol/L (3.5-5.1) Chloride Level 108 mmol/L (98-107) Carbon Dioxide Level 32 mmol/L (21-32) Anion Gap 7 (6-14) Blood Urea Nitrogen 13 mg/dL (7-20) Creatinine 0.5 mg/dL (0.6-1.0) Estimated GFR (Cockcroft-Gault) 124.6 BUN/Creatinine Ratio 26 (6-20) Glucose Level 91 mg/dL (70-99) Calcium Level 8.8 mg/dL (8.5-10.1) Total Bilirubin 0.3 mg/dL (0.2-1.0) Aspartate Amino Transf (AST/SGOT) 29 U/L (15-37) Alanine Aminotransferase (ALT/SGPT) 28 U/L (14-59) Alkaline Phosphatase 149 U/L (46-116) Total Protein 7.0 g/dL (6.4-8.2) Albumin 3.3 g/dL (3.4-5.0) Albumin/Globulin Ratio 0.9 (1.0-1.7) Current Medications Medications (Trade) Dose Ordered Sig/Wm Route PRN Reason Start Time Stop Time Status Last Admin Dose Admin Clonazepam (KlonoPIN) 1 mg PRN BID PRN PO ANXIETY / AGITATION 01/21/18 20:15 Clonidine HCl (Catapres Tts-1) 1 patch WEEKLY TD 01/28/18 09:00 Docusate Sodium (Colace Solution) 100 mg BID PO 01/21/18 21:00 01/21/18 21:01 Ibuprofen (Motrin) 600 mg PRN BID PRN PO PAIN 01/21/18 20:30 Levetiracetam (Keppra) 1,500 mg BID PO 01/21/18 21:00 01/22/18 08:31 Lorazepam (Ativan Intensol) 2 mg PRN Q6HRS PRN PO ANXIETY / AGITATION 01/21/18 20:15 Ondansetron HCl (Zofran Odt) 4 mg PRN Q8HRS PRN PO NAUSEA/VOMITING 01/21/18 20:15 Polyethylene Glycol (miraLAX) 17 gm PRN DAILY PRN PO CONSTIPATION 01/22/18 09:00 Lacosamide (Vimpat) 150 mg BID PO 01/21/18 21:00 01/21/18 21:01 Loperamide HCl (Immodium) 2 mg TID PRN PRN PO DIARRHEA 01/21/18 20:30 Cefazolin Sodium 1 gm/Sodium Chloride 50 ml @ 100 mls/hr Q8HRS IV 01/21/18 22:00 01/22/18 05:17 Potassium Chloride (KCl Oral Soln) 40 meq 1X ONCE PO 01/22/18 08:15 01/22/18 14:28 DC Potassium Chloride/Dextrose/ Sod Cl 1,000 ml @ 125 mls/hr 1X ONCE IV 01/22/18 14:30 01/22/18 22:29 Levetiracetam 1000 mg/Sodium Chloride 100 ml @ 400 mls/hr Q12HR IV 01/22/18 21:00 UNV I & O 01/22/18 00:00 Intake Total 180 ml Balance 180 ml Vital Signs Date Time Temp Pulse Resp B/P (MAP) Pulse Ox O2 Delivery O2 Flow Rate FiO2 01/22/18 11:05 92 18 111/40 (63) 95 Room Air 01/22/18 05:30 97.9 GLORIA NINO MD Jan 22, 2018 14:42
[2018-01-22] MEDS: clonazePAM 1 MG TABLET PO PRN (20:25)
[2018-01-22] MEDS: HEPARIN PF for SUB-Q USE 5,000 UNIT/0.5 ML VIAL. SQ SCH (20:27)
[2018-01-22] MEDS: LACOSAMIDE 10 MG/1 ML PO SCH (20:45)
[2018-01-22 23:04] VITALS: BP 135/60
[2018-01-23 06:12] VITALS: BP 164/85
[2018-01-23 06:19] LABS: CALCIUM 8.9 mg/dL (8.5-10.1); CREATININE 0.6 mg/dL (0.6-1.0); POTASSIUM 3.3 mmol/L (3.5-5.1)
[2018-01-23] MEDS: DOCUSATE 100 MG/10 ML SOLUTION. PO SCH ×2 (09:00→21:00)
[2018-01-23] MEDS ORDERED: LACTOBACILLUS RHAMNOSUS GG 1 CAPSULE. PO SCH (09:00)
[2018-01-23] MEDS: LACOSAMIDE 10 MG/1 ML PO SCH ×3 (09:00→20:40)
[2018-01-23 10:55] VITALS: BP 180/74
[2018-01-23] MEDS: HEPARIN PF for SUB-Q USE 5,000 UNIT/0.5 ML VIAL. SQ SCH ×2 (11:10→21:04)
[2018-01-23] MEDS ORDERED: POTASSIUM CL 40MEQ D5-0.45NACL 1,000 ML IV ONE (12:15)
--- NOTE | 2018-01-23 12:21 | PDOC ---
PROGRESS NOTES Assessment 1. Positive blood culture: Treat w/ Ancef pending confirmation of ID/sens. No sign of sepsis. 2. Seizure d/o: Will give IV Keppra while pt not taking po 3. Hypokalemia: Replace w/ IV, pt refused PO, K+ improved today. 4. UTI: On Ancef. Will not need abx at d/c if BC is a contaminant. 5. DVT proph: Heparin. Problems: Subjective Pt non-verbal. Unable to examine, pt pushes me away. Per nursing pt stable, no sign of generalized seizures. ROS unobtainable due to pt's mental status. Objective Vital Signs Date Time Temp Pulse Resp B/P (MAP) Pulse Ox O2 Delivery O2 Flow Rate FiO2 01/23/18 10:55 71 20 180/74 (109) 98 Room Air 01/23/18 06:12 97.9 Intake and Output 01/23/18 07:00 Intake Total 1524.29 ml Balance 1524.29 ml Intake Oral 220 ml IV Total 1304.29 ml # Voids 6 Psych/Mental Status: Other (Unable to examine. From a distance, pt in [facility]. NO rash. ) Review of Relevant I have reviewed the following items rajiv (where applicable) has been applied. Labs Laboratory Tests Test 01/21/18 22:34 01/22/18 06:37 01/23/18 05:59 Nasal Screen MRSA (PCR) Negative (Negative) White Blood Count 4.8 x10^3/uL (4.0-11.0) Red Blood Count 4.42 x10^6/uL (3.50-5.40) Hemoglobin 13.4 g/dL (12.0-15.5) Hematocrit 40.3 % (36.0-47.0) Mean Corpuscular Volume 91 fL (79-100) Mean Corpuscular Hemoglobin 30 pg (25-35) Mean Corpuscular Hemoglobin Concent 33 g/dL (31-37) Red Cell Distribution Width 12.6 % (11.5-14.5) Platelet Count 223 x10^3/uL (140-400) Neutrophils (%) (Auto) 43 % (31-73) Lymphocytes (%) (Auto) 40 % (24-48) Monocytes (%) (Auto) 14 % (0-9) Eosinophils (%) (Auto) 2 % (0-3) Basophils (%) (Auto) 2 % (0-3) Neutrophils # (Auto) 2.1 x10^3uL (1.8-7.7) Lymphocytes # (Auto) 1.9 x10^3/uL (1.0-4.8) Monocytes # (Auto) 0.7 x10^3/uL (0.0-1.1) Eosinophils # (Auto) 0.1 x10^3/uL (0.0-0.7) Basophils # (Auto) 0.1 x10^3/uL (0.0-0.2) Sodium Level 147 mmol/L (136-145) 145 mmol/L (136-145) Potassium Level 3.1 mmol/L (3.5-5.1) 3.3 mmol/L (3.5-5.1) Chloride Level 108 mmol/L (98-107) 109 mmol/L (98-107) Carbon Dioxide Level 32 mmol/L (21-32) 32 mmol/L (21-32) Anion Gap 7 (6-14) 4 (6-14) Blood Urea Nitrogen 13 mg/dL (7-20) 7 mg/dL (7-20) Creatinine 0.5 mg/dL (0.6-1.0) 0.6 mg/dL (0.6-1.0) Estimated GFR (Cockcroft-Gault) 124.6 101.0 BUN/Creatinine Ratio 26 (6-20) Glucose Level 91 mg/dL (70-99) 83 mg/dL (70-99) Calcium Level 8.8 mg/dL (8.5-10.1) 8.9 mg/dL (8.5-10.1) Total Bilirubin 0.3 mg/dL (0.2-1.0) Aspartate Amino Transf (AST/SGOT) 29 U/L (15-37) Alanine Aminotransferase (ALT/SGPT) 28 U/L (14-59) Alkaline Phosphatase 149 U/L (46-116) Total Protein 7.0 g/dL (6.4-8.2) Albumin 3.3 g/dL (3.4-5.0) Albumin/Globulin Ratio 0.9 (1.0-1.7) Medications Current Medications Clonazepam (KlonoPIN) 1 mg PRN BID PRN PO ANXIETY / AGITATION Last administered on 01/22/18at 20:25; Start 01/21/18 at 20:15 Clonidine HCl (Catapres Tts-1) 1 patch WEEKLY TD ; Start 01/28/18 at 09:00 Docusate Sodium (Colace Solution) 100 mg BID PO Last administered on 01/21/18at 21:01; Start 01/21/18 at 21:00 Ibuprofen (Motrin) 600 mg PRN BID PRN PO PAIN Last administered on 01/22/18at 20 :25; Start 01/21/18 at 20:30 Levetiracetam (Keppra) 1,500 mg BID PO Last administered on 01/22/18at 08:31; Start 01/21/18 at 21:00; Stop 01/22/18 at 14:33; Status DC Lorazepam (Ativan Intensol) 2 mg PRN Q6HRS PRN PO ANXIETY / AGITATION; Start at 20:15 Ondansetron HCl (Zofran Odt) 4 mg PRN Q8HRS PRN PO NAUSEA/VOMITING; Start 01/21 at 20:15 Polyethylene Glycol (miraLAX) 17 gm PRN DAILY PRN PO CONSTIPATION; Start at 09:00 Lacosamide (Vimpat) 150 mg BID PO Last administered on 01/21/18at 21:01; Start 01/21/18 at 21:00; Stop 01/22/18 at 19:15; Status DC Loperamide HCl (Immodium) 2 mg TID PRN PRN PO DIARRHEA; Start 01/21/18 at 20:30 Cefazolin Sodium 1 gm/Sodium Chloride 50 ml @ 100 mls/hr Q8HRS IV Last administered on 01/23/18at 06:12; Start 01/21/18 at 22:00 Potassium Chloride (KCl Oral Soln) 40 meq 1X ONCE PO ; Start 01/22/18 at 08:15 ; Stop 01/22/18 at 14:28; Status DC Potassium Chloride/Dextrose/ Sod Cl 1,000 ml @ 125 mls/hr 1X ONCE IV Last administered on 01/22/18at 14:30; Start 01/22/18 at 14:30; Stop 01/22/18 at 22:29 ; Status DC Levetiracetam 1000 mg/Sodium Chloride 100 ml @ 400 mls/hr Q12HR IV Last administered on 01/23/18at 10:41; Start 01/22/18 at 21:00 Heparin Sodium (Porcine) (Heparin Sq) 5,000 unit Q12HR SQ Last administered on 01/23/18at 11:10; Start 01/22/18 at 21:00 Non-Formulary Medication 1 ea BID PO Last administered on 01/23/18at 11:08; Start 01/22/18 at 21:00 Lactobacillus Rhamnosus (Culturelle) 1 cap BID PO ; Start 01/23/18 at 09:00; Status Cancel Active Scripts Active Cephalexin 250 Mg/5 Ml Susp.recon 10 Ml PO BID Loperamide (Loperamide Hcl) 1 Mg/7.5 Ml Liquid 1 Mg PO TID PRN Zofran Odt (Ondansetron) 4 Mg Tab.rapdis 1 Tab SL Q8HRS PRN Reported Motrin Ib (Ibuprofen) 200 Mg Tablet 600 Mg PO PRN BID PRN Polyethylene Glycol 3350 255 Gm Powder 17 Gm PO DAILY PRN not given this admit LAST DOSE GIVEN: DATE:has not had TIME: NEXT DOSE DUE: DATE: TODAY TIME: IF NEEDED Catapres-Tts 1 (Clonidine) 1 Each Patch.tdwk 1 Each TD WEEKLY LAST DOSE GIVEN: DATE: 01/20 TIME: NEXT DOSE DUE: DATE: 01/23 TIME: Clonazepam 1 Mg Tablet 1 Mg PO PRN BID PRN LAST DOSE GIVEN: DATE: has not had TIME: NEXT DOSE DUE: DATE: has not had TIME: Vimpat (Lacosamide) 10 Mg/1 Ml Solution 150 Mg PO BID LAST DOSE GIVEN: DATE: has not had TIME: NEXT DOSE DUE: DATE: TODAY TIME: PM Lorazepam 2 Mg/1 Ml Oral.conc 2 Mg PO PRN Q6HRS PRN LAST DOSE GIVEN: DATE: has not had TIME: NEXT DOSE DUE: DATE: TODAY TIME: WHEN NEEDED Levetiracetam 100 Mg/1 Ml Solution 1,500 Mg PO BID LAST DOSE GIVEN: DATE: TODAY TIME: AM NEXT DOSE DUE: DATE: TODAY TIME: PM Docusate Sodium 50 Mg/5 Ml Liquid 100 Mg PO BID LAST DOSE GIVEN: DATE:has not had TIME: NEXT DOSE DUE: DATE: RESUME TIME: WHEN NEEDED Vitals/I & O Vital Sign - Last 24 Hours 01/22/18 01/22/18 01/22/18 01/23/18 17:10 19:20 23:04 06:12 Temp 97.9 97.9 Pulse 64 66 Resp 16 20 B/P (MAP) 135/60 (85) 164/85 (111) Pulse Ox 99 98 O2 Delivery Room Air Room Air Room Air 01/23/18 01/23/18 08:00 10:55 Pulse 71 Resp 20 B/P (MAP) 180/74 (109) Pulse Ox 98 O2 Delivery Room Air Room Air Intake and Output 01/22/18 01/22/18 01/23/18 15:00 23:00 07:00 Intake Total 80 ml 600.05 ml 844.24 ml Balance 80 ml 600.05 ml 844.24 ml GLORIA INNO MD Jan 23, 2018 12:21
[2018-01-23 17:53] VITALS: BP 181/72
[2018-01-23 23:00] VITALS: BP 127/71
[2018-01-24 06:39] VITALS: BP 162/68
[2018-01-24 06:42] LABS: CALCIUM 8.6 mg/dL (8.5-10.1); CREATININE 0.5 mg/dL (0.6-1.0); GFR 124.6; POTASSIUM 3.3 mmol/L (3.5-5.1)
[2018-01-24] MEDS: HEPARIN PF for SUB-Q USE 5,000 UNIT/0.5 ML VIAL. SQ SCH ×2 (09:00→20:13)
[2018-01-24] MEDS: DOCUSATE 100 MG/10 ML SOLUTION. PO SCH ×2 (09:00→20:11)
[2018-01-24] MEDS: LACOSAMIDE 10 MG/1 ML PO SCH ×2 (09:14→20:16)
[2018-01-24] MEDS ORDERED: POTASSIUM CL 40MEQ D5-0.45NACL 1,000 ML IV ONE (09:30)
--- NOTE | 2018-01-24 09:33 | PDOC ---
PROGRESS NOTES Assessment 1. Positive blood culture: Treat w/ Ancef pending confirmation of ID/sens. No sign of sepsis. Lab states culture is very slow growing, may not have result til Thursday. 2. Seizure d/o: Will give IV Keppra while pt not taking po 3. Hypokalemia: Replace w/ IV, pt refused PO, K+ still low, but stable (3.3). 4. UTI: On Ancef. Will not need abx at d/c if BC is a contaminant. 5. DVT proph: Heparin. Problems: Plan of Care: see other orders Subjective Pt seen on rounds. Sleeping, restless. No rash. Resp effort non-labored. Pt still not taking PO for our staff. Objective Vital Signs Date Time Temp Pulse Resp B/P (MAP) Pulse Ox O2 Delivery O2 Flow Rate FiO2 01/24/18 06:39 97.3 66 20 162/68 (99) 94 Room Air Intake and Output 01/24/18 07:00 Intake Total 1420.2 ml Balance 1420.2 ml Intake Oral 120 ml IV Total 1300.2 ml # Voids 5 Psych/Mental Status: Other (Pt resists exam as she has the whole time she has been here. No obvious distress, pt sleeping.) Review of Relevant I have reviewed the following items rajiv (where applicable) has been applied. Labs Laboratory Tests Test 01/23/18 05:59 01/24/18 06:21 Sodium Level 145 mmol/L (136-145) 146 mmol/L (136-145) Potassium Level 3.3 mmol/L (3.5-5.1) 3.3 mmol/L (3.5-5.1) Chloride Level 109 mmol/L (98-107) 106 mmol/L (98-107) Carbon Dioxide Level 32 mmol/L (21-32) 33 mmol/L (21-32) Anion Gap 4 (6-14) 7 (6-14) Blood Urea Nitrogen 7 mg/dL (7-20) 4 mg/dL (7-20) Creatinine 0.6 mg/dL (0.6-1.0) 0.5 mg/dL (0.6-1.0) Estimated GFR (Cockcroft-Gault) 101.0 124.6 Glucose Level 83 mg/dL (70-99) 81 mg/dL (70-99) Calcium Level 8.9 mg/dL (8.5-10.1) 8.6 mg/dL (8.5-10.1) Medications Current Medications Clonazepam (KlonoPIN) 1 mg PRN BID PRN PO ANXIETY / AGITATION Last administered on 01/22/18at 20:25; Start 01/21/18 at 20:15 Clonidine HCl (Catapres Tts-1) 1 patch WEEKLY TD ; Start 01/28/18 at 09:00 Docusate Sodium (Colace Solution) 100 mg BID PO Last administered on 01/23/18at 21:00; Start 01/21/18 at 21:00 Ibuprofen (Motrin) 600 mg PRN BID PRN PO PAIN Last administered on 01/22/18at 20 :25; Start 01/21/18 at 20:30 Levetiracetam (Keppra) 1,500 mg BID PO Last administered on 01/22/18at 08:31; Start 01/21/18 at 21:00; Stop 01/22/18 at 14:33; Status DC Lorazepam (Ativan Intensol) 2 mg PRN Q6HRS PRN PO ANXIETY / AGITATION; Start at 20:15 Ondansetron HCl (Zofran Odt) 4 mg PRN Q8HRS PRN PO NAUSEA/VOMITING; Start 01/21 at 20:15 Polyethylene Glycol (miraLAX) 17 gm PRN DAILY PRN PO CONSTIPATION; Start at 09:00 Lacosamide (Vimpat) 150 mg BID PO Last administered on 01/21/18at 21:01; Start 01/21/18 at 21:00; Stop 01/22/18 at 19:15; Status DC Loperamide HCl (Immodium) 2 mg TID PRN PRN PO DIARRHEA; Start 01/21/18 at 20:30 Cefazolin Sodium 1 gm/Sodium Chloride 50 ml @ 100 mls/hr Q8HRS IV Last administered on 01/24/18at 05:29; Start 01/21/18 at 22:00 Potassium Chloride (KCl Oral Soln) 40 meq 1X ONCE PO ; Start 01/22/18 at 08:15 ; Stop 01/22/18 at 14:28; Status DC Potassium Chloride/Dextrose/ Sod Cl 1,000 ml @ 125 mls/hr 1X ONCE IV Last administered on 01/22/18at 14:30; Start 01/22/18 at 14:30; Stop 01/22/18 at 22:29 ; Status DC Levetiracetam 1000 mg/Sodium Chloride 100 ml @ 400 mls/hr Q12HR IV Last administered on 01/24/18at 09:14; Start 01/22/18 at 21:00 Heparin Sodium (Porcine) (Heparin Sq) 5,000 unit Q12HR SQ Last administered on 01/23/18at 21:04; Start 01/22/18 at 21:00 Non-Formulary Medication 1 ea BID PO Last administered on 01/24/18at 09:14; Start 01/22/18 at 21:00 Lactobacillus Rhamnosus (Culturelle) 1 cap BID PO ; Start 01/23/18 at 09:00; Status Cancel Potassium Chloride/Dextrose/ Sod Cl 1,000 ml @ 75 mls/hr 1X ONCE IV Last administered on 01/23/18at 13:17; Start 01/23/18 at 12:15; Stop 01/24/18 at 01:34 ; Status DC Active Scripts Active Cephalexin 250 Mg/5 Ml Susp.recon 10 Ml PO BID Loperamide (Loperamide Hcl) 1 Mg/7.5 Ml Liquid 1 Mg PO TID PRN Zofran Odt (Ondansetron) 4 Mg Tab.rapdis 1 Tab SL Q8HRS PRN Reported Motrin Ib (Ibuprofen) 200 Mg Tablet 600 Mg PO PRN BID PRN Polyethylene Glycol 3350 255 Gm Powder 17 Gm PO DAILY PRN not given this admit LAST DOSE GIVEN: DATE:has not had TIME: NEXT DOSE DUE: DATE: TODAY TIME: IF NEEDED Catapres-Tts 1 (Clonidine) 1 Each Patch.tdwk 1 Each TD WEEKLY LAST DOSE GIVEN: DATE: 01/20 TIME: NEXT DOSE DUE: DATE: 01/23 TIME: Clonazepam 1 Mg Tablet 1 Mg PO PRN BID PRN LAST DOSE GIVEN: DATE: has not had TIME: NEXT DOSE DUE: DATE: has not had TIME: Vimpat (Lacosamide) 10 Mg/1 Ml Solution 150 Mg PO BID LAST DOSE GIVEN: DATE: has not had TIME: NEXT DOSE DUE: DATE: TODAY TIME: PM Lorazepam 2 Mg/1 Ml Oral.conc 2 Mg PO PRN Q6HRS PRN LAST DOSE GIVEN: DATE: has not had TIME: NEXT DOSE DUE: DATE: TODAY TIME: WHEN NEEDED Levetiracetam 100 Mg/1 Ml Solution 1,500 Mg PO BID LAST DOSE GIVEN: DATE: TODAY TIME: AM NEXT DOSE DUE: DATE: TODAY TIME: PM Docusate Sodium 50 Mg/5 Ml Liquid 100 Mg PO BID LAST DOSE GIVEN: DATE:has not had TIME: NEXT DOSE DUE: DATE: RESUME TIME: WHEN NEEDED Vitals/I & O Vital Sign - Last 24 Hours 01/23/18 01/23/18 01/23/18 01/23/18 10:55 17:53 19:30 23:00 Temp 98.0 97.7 Pulse 71 74 61 Resp 20 20 20 B/P (MAP) 180/74 (109) 181/72 (108) 127/71 (89) Pulse Ox 98 98 97 O2 Delivery Room Air Room Air Room Air Room Air 01/24/18 06:39 Temp 97.3 Pulse 66 Resp 20 B/P (MAP) 162/68 (99) Pulse Ox 94 O2 Delivery Room Air Intake and Output 01/23/18 01/23/18 01/24/18 15:00 23:00 07:00 Intake Total 270 ml 1150.2 ml Balance 270 ml 1150.2 ml GLORIA NINO MD Jan 24, 2018 09:33
[2018-01-24 15:27] VITALS: BP 120/71
[2018-01-24 19:00] VITALS: BP 171/87
[2018-01-24] MEDS: clonazePAM 1 MG TABLET PO PRN (20:11)
[2018-01-25 05:05] VITALS: BP 166/71
[2018-01-25 06:01] LABS: CALCIUM 8.6 mg/dL (8.5-10.1); CREATININE 0.5 mg/dL (0.6-1.0); GFR 124.6; POTASSIUM 3.2 mmol/L (3.5-5.1)
[2018-01-25] MEDS: DOCUSATE 100 MG/10 ML SOLUTION. PO SCH ×2 (08:09→20:06)
[2018-01-25] MEDS: HEPARIN PF for SUB-Q USE 5,000 UNIT/0.5 ML VIAL. SQ SCH ×2 (08:30→20:06)
[2018-01-25] MEDS: LACOSAMIDE 10 MG/1 ML PO SCH ×3 (09:00→20:05)
[2018-01-25] MEDS: POTASSIUM CL 40MEQ IN D5W 1,000 ML IV SCH (12:43)
[2018-01-25 13:33] VITALS: BP 143/68
[2018-01-25 19:10] VITALS: BP 134/69
[2018-01-25] MEDS: clonazePAM 1 MG TABLET PO PRN (20:05)
--- NOTE | 2018-01-25 22:55 | PN ---
DATE: 01/25/2018 SUBJECTIVE: The patient is resting slightly propped up in bed, sleeping comfortably in no apparent distress. The nursing staff did not voice any concerns, that she had an uneventful night. She has been afebrile, hemodynamically stable with normal white cell count since admission. I did speak with the microbiology lab at [facility], and apparently they managed to identify the bacteria today and seems to be Streptococcus viridans; however, they have not currently sensitivity yet. PHYSICAL EXAMINATION: GENERAL: On examining her this morning, she looked pale, but no jaundice, cyanosis, or thyromegaly. No jugular venous distension. No limb edema. VITAL SIGNS: Her heart rate was 60, blood pressure was 171/74, temperature was 97.9, respiratory rate was 18 and oxygen saturation was 99%. HEAD, EYES, EARS, NOSE AND THROAT: Showed she is normocephalic, atraumatic. NECK: Supple. HEART: Showed normal first and second heart sounds. No gallop, rub or murmur. CHEST: Clear to auscultation. No crepitation or rhonchi. ABDOMEN: Distended, soft, nontender. NEUROLOGIC: She was sleepy, but arousable. All cranial nerves intact. She apparently is mostly bed bound. Her intake over the last 24 hours was 1420, no output was recorded. LABORATORY DATA: Her most recent lab white cell count was 4800, hemoglobin 13.4, hematocrit 40, MCV 91, and platelet count 223,000 with normal manual differential. Her serum sodium was 147, potassium 3.2, chloride 108, bicarbonate 32, anion gap of 7, BUN 4, creatinine 0.5, estimated GFR was 124 mL, glucose was 91 and calcium was 8.6. ASSESSMENT: 1. Positive blood culture, currently on Ancef. The bacteria was identified as Streptococcus viridans; however, no sensitivities available yet. 2. Seizure disorder, well controlled on Keppra and Vimpat. 3. Hypokalemia. The patient is refusing to take oral potassium. 4. Urinary tract infection for which the patient continued also to be on Rocephin. 5. Deep venous thrombosis prophylaxis, for which the patient is on heparin. 6. The patient has also hypokalemia and hypernatremia. PLAN: My plan is to start her on D5W with 40 mEq of potassium chloride. Repeat her lab work, and once we have the sensitivity, she can be [facility]. DENISE ACUÑA MD DR: TULIO/aly JOB#: [id number] / [id number]
[2018-01-26] MEDS: POTASSIUM CL 40MEQ IN D5W 1,000 ML IV SCH (03:41)
[2018-01-26 05:50] VITALS: BP 162/76
[2018-01-26 06:16] LABS: HEMATOCRIT 43.8 % (36.0-47.0); HEMOGLOBIN 14.7 g/dL (12.0-15.5); RED BLOOD COUNT 4.9 x10^6/uL (3.50-5.40); RED CELL DISTRIBUTION WIDTH 12.1 % (11.5-14.5); WHITE BLOOD COUNT 4.4 x10^3/uL (4.0-11.0)
[2018-01-26 06:29] LABS: ALBUMIN 3.2 g/dL (3.4-5.0); ALBUMIN/GLOBULIN RATIO 0.8 (1.0-1.7); CALCIUM 9.2 mg/dL (8.5-10.1); CREATININE 0.5 mg/dL (0.6-1.0); GFR 124.6; POTASSIUM 4.6 mmol/L (3.5-5.1); TOTAL BILIRUBIN 0.3 mg/dL (0.2-1.0); TOTAL PROTEIN 7.1 g/dL (6.4-8.2)
[2018-01-26] MEDS: LACOSAMIDE 10 MG/1 ML PO SCH (09:04)
[2018-01-26] MEDS: DOCUSATE 100 MG/10 ML SOLUTION. PO SCH (09:04)
[2018-01-26] MEDS: HEPARIN PF for SUB-Q USE 5,000 UNIT/0.5 ML VIAL. SQ SCH (09:07)
--- NOTE | 2018-01-26 12:23 | DS ---
DATE OF DISCHARGE: 01/26/2018 HOSPITAL COURSE: The patient is a 62-year-old female patient, a resident at a correction, who apparently was readmitted to [facility] as her blood culture has grown gram-positive cocci. I treated empirically with Ancef. I did speak with the microbiology lab at [facility] and apparently the bacteria was identified as Streptococcus viridans; however, it is a very slow growing and took about 6 days to identify it and so far, we have no sensitivities; however, the streptococci is usually pansensitive to all antibiotics and the patient has been hemodynamically stable, afebrile. Her white cell count was normal throughout the 5 days that she has been here and therefore, a decision was made to discharge her back to correction to continue with oral amoxicillin. PHYSICAL EXAMINATION: GENERAL: When I saw her today, she looked well and was clearly in no apparent respiratory distress, pale, but no jaundice, cyanosis or thyromegaly. No jugular venous distension. No limb edema. VITAL SIGNS: Her heart rate was 57, blood pressure was 162/76, temperature was 97.4, respiratory rate was 18 and oxygen saturation was 98% on room air. HEAD, EYES, EARS, NOSE AND THROAT: Showed she is normocephalic, atraumatic. NECK: Supple. HEART: Showed normal first and second heart sounds. No gallop, rub or murmur. CHEST: Clear to auscultation. No crepitation or rhonchi. ABDOMEN: Scaphoid, soft, nontender. NEUROLOGIC: She is sleepy, but arousable. All cranial nerves intact. He moves extremities without difficulty, though she is mostly bed bound. Her intake over the last 24 hours was 1550, no output was recorded. LABORATORY DATA: As of this morning showed a white cell count 4400, hemoglobin 14.7, hematocrit 44, MCV 89 and platelet count 243,000. Her chemistry showed that her sodium is down to 146, potassium 4.6, chloride 108, bicarbonate 34, anion gap of 4, BUN 6, creatinine 0.5, estimated GFR was 124. Her glucose was 90, calcium was 9.2. Total bilirubin, AST, ALT were normal. Alkaline phosphatase slightly elevated. Her total protein was 7.1, albumin was 3.2. Her blood culture has grown gram-positive cocci identified as Streptococcus viridans. DISCHARGE MEDICATIONS: The patient will be discharged back to correction to continue on following medications: Amoxicillin 250 mg per 5 mL to take 10 mL 3 times a day for 5 more days, clonazepam 1 mg b.i.d. as needed for anxiety, clonidine for Catapres TTS-1 patch once a week for high blood pressure and Colace 50 mg per 5 mL to take 100 mg twice a day, ibuprofen 600 mg 2 twice a day as needed for pain, Vimpat 150 mg twice a day, Keppra 1500 mg twice a day, loperamide 1 mg 3 times a day, lorazepam for Intensol 2 mg every 6 hours as needed, Zofran ODT 4 mg every 8 hours as needed for nausea and vomiting, polyethylene glycol 17 grams daily p.r.n. for constipation. FINAL DISCHARGE DIAGNOSES: 1. Streptococcus viridans bacteremia. The patient was treated with Ancef for 4 days and will be discharged to continue treatment with oral amoxicillin. 2. Seizure disorder, well controlled on Keppra and Vimpat. 3. Urinary tract infection for which she continued to be on Ancef and will finish with oral amoxicillin. 4. Hypokalemia, resolved. Her serum potassium today is 4.6 from 3.2. 5. Hypernatremia, improved. Her serum sodium is down to 146. DENISE ACUÑA MD DR: TULIO/aly JOB#: [id number] / [id number]
[2018-01-28] MEDS ORDERED: cloNIDine TTS-1 1 PATCH PATCH TD SCH (09:00)
== END 2018-01-26 12:25 | disposition home or self-care (01) | DRG 690 ==
LOC: 1 SOUTH 19:19
PROVIDERS: ADMIT Family Medicine; ATTEND Family Medicine
DX: N39.0 Urinary tract infection, site not specified (principal); R78.81 Bacteremia; E87.0 Hyperosmolality and hypernatremia; B95.4 Other streptococcus as the cause of diseases classified elsewhere; E87.6 Hypokalemia; G40.909 Epilepsy, unspecified, not intractable, without status epilepticus
CPT/HCPCS: 36415; 80048; 80053; 81001; 83605; 85007; 85025; 85027; 87040; 87205; 87641; J0690; J1953; J7042

== ENCOUNTER 2018-06-06 16:51 | Emergency (ER) | payer MEDICARE, OTHER ==
[~2018-06-06] VITALS: Ht 167.6 cm; Wt 48.0 kg
[~2018-06-06 16:51] MED LIST changes: -CLON1TAB3 PO; +CLON1TAB4 PO; +IBUP200T44 PO
--- NOTE | 2018-06-06 18:13 | PHYS DOC ---
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 The patient fell out of bed while trying to get up yesterday. The distance was about 2 feet from the floor. She did sustain a small cut to the back of her head which bled a little bit, but since stopped. They presented to the ED today because they're concerned that she is not acting herself. She is less active in general. She is usually more combative and rolling around the facility in her wheelchair. Today she has more hostile and staying in her bed. She has not had a clinical fever. She is moving all extremities. She has been eating and drinking normally. Patient has had a UTI in the past which presented with similar symptoms. Review of Systems Review of Systems Review of systems is limited due to the patient being minimally verbal at baseline. Most of this review of systems is gleaned from her caretakers and their observations versus baseline. Constitutional: Denies fever or chills [] Eyes: Denies change in visual acuity, redness, or eye pain [] HENT: Denies nasal congestion or sore throat [] Respiratory: Denies cough or shortness of breath [] Cardiovascular: No additional information not addressed in HPI [] GI: Denies abdominal pain, nausea, vomiting, bloody stools or diarrhea [] : Denies dysuria or hematuria. Wears Depends[] Musculoskeletal: Denies back pain or joint pain [] Integument: Denies rash or skin lesions [] Neurologic: Denies headache, focal weakness or sensory changes [] Endocrine: Denies polyuria or polydipsia [] All other systems were reviewed and found to be within normal limits, except as documented in this note. Allergies Allergies Allergies Coded Allergies Type Severity Reaction Last Updated Verified No Known Drug Allergies 03/10/14 No Physical Exam Physical Exam Constitutional: Well developed, well nourished, no acute distress, non-toxic appearance. [] HENT: Normocephalic, atraumatic, bilateral external ears normal, oropharynx moist, no oral exudates, nose normal. [] Eyes: PERRLA, EOMI, conjunctiva normal, no discharge. [] Neck: Normal range of motion, no tenderness, supple, no stridor. [] Cardiovascular:Heart rate regular rhythm, no murmur [] Lungs & Thorax: Bilateral breath sounds clear to auscultation [] Abdomen: Bowel sounds normal, soft, no tenderness, no masses, no pulsatile masses. [] Skin: Warm, dry, no erythema, no rash. Superficial abrasion of the scalp with overlying scab. No current bleeding. No depression of the skull or soft tissue hematoma.[] Back: No tenderness, no CVA tenderness. [] Extremities: No tenderness, no cyanosis, no clubbing, ROM intact, no edema. [] Neurologic: Alert, normal motor function, normal sensory function, no focal deficits noted. Moving all extremities. She resists physical examination which is normal for her.[] Psychologic: Affect normal, mood normal. [] Current Patient Data Vital Signs Vital Signs Date Time Temp Pulse Resp B/P (MAP) Pulse Ox O2 Delivery O2 Flow Rate FiO2 06/06/18 17:00 99.8 101 20 93 Room Air EKG EKG [] Radiology/Procedures Radiology/Procedures [] Impressions: CT HEAD WO CONTRAST dated 06/06/2018 8:18 PM Indication:Injury from fall, headache Comparison: 01/12/2016. Technique: Noncontrast images were obtained. One or more of the following individualized dose reduction techniques were utilized for this examination: 1. Automated exposure control 2. Adjustment of the mA and/or kV according to patient size 3. Use of iterative reconstruction technique Findings: There is no apparent intracranial hemorrhage or abnormal extra-axial fluid collection. No new area of abnormal density is seen in the brain. The ventricles and basilar cisterns are normally positioned. Bone windows demonstrate no apparent fracture of the skull or abnormal sinus or mastoid opacification. IMPRESSION: No acute abnormality. Electronically signed by: Chuy Mosquera Jr., MD (06/06/2018 8:41 PM) [facility] Course & Med Decision Making Course & Med Decision Making Pertinent Labs and Imaging studies reviewed. (See chart for details) The patient's labs are unremarkable. Her urinalysis is negative. A head CT was performed and there were no acute findings. The patient's laceration is clotted off a well approximated. Any attempt at a revision with sutures or negro would be very difficult as the patient would not tolerate this procedure well. The patient's caregiver and myself feel that that allowing it to heal as is would be the best course of action. The caregivers were reassured by the patient's negative findings. She is stable for discharge and return to the care facility at this time. [] Dragon Disclaimer Dragon Disclaimer This electronic medical record was generated, in whole or in part, using a voice recognition dictation system. Departure Departure: Referrals: SHABANA LIZ (PCP) TRIXIE DELEON DO Jun 06, 2018 18:13
[2018-06-06] MEDS ORDERED: LORazepam 2 MG/ML VIAL IM ONE (18:15)
[2018-06-06 19:51] LABS: BASO # 0.1 x10^3/uL (0.0-0.2); BASO % 1 % (0-3); EOS # 0.2 x10^3/uL (0.0-0.7); EOS % 2 % (0-3); HEMATOCRIT 40.8 % (36.0-47.0); HEMOGLOBIN 13.9 g/dL (12.0-15.5); LYMPH # 1.2 x10^3/uL (1.0-4.8); LYMPH % 12 % (24-48); MEAN CORPUSCULAR HEMOGLOBIN 31 pg (25-35); MEAN CORPUSCULAR HGB CONC 34 g/dL (31-37); MEAN CORPUSCULAR VOLUME 90 fL (79-100); MONO # 0.4 x10^3/uL (0.0-1.1); MONO % 5 % (0-9); NEUT # 7.6 x10^3uL (1.8-7.7); NEUT % 80 % (31-73); PLATELET COUNT 174 x10^3/uL (140-400); RED BLOOD COUNT 4.53 x10^6/uL (3.50-5.40); RED CELL DISTRIBUTION WIDTH 13.1 % (11.5-14.5); WHITE BLOOD COUNT 9.5 x10^3/uL (4.0-11.0)
[2018-06-06 19:55] LABS: BILIRUBIN,URINE NEG (NEG); CLARITY,URINE CLEAR; COLOR,URINE YELLOW; GLUCOSE,URINE NEG (NEG)
[2018-06-06 19:56] LABS: BACTERIA,URINE FEW /HPF (0-FEW); NITRITE,URINE NEG (NEG); RBC,URINE 0 /HPF (0-2); SQUAMOUS EPITHELIAL CELL,UR OCC /LPF; UROBILINOGEN,URINE 4 mg/dL (0.2 mg/dL); WBC,URINE RARE /HPF (0-4)
[2018-06-06 20:03] LABS: CALCIUM 9.2 mg/dL (8.5-10.1); CREATININE 0.7 mg/dL (0.6-1.0); GFR 84.2; POTASSIUM 3.6 mmol/L (3.5-5.1)
--- NOTE | 2018-06-06 20:45 | RAD ---
CT HEAD WO CONTRAST dated 06/06/2018 8:18 PM Indication:Injury from fall, headache Comparison: 01/12/2016. Technique: Noncontrast images were obtained. One or more of the following individualized dose reduction techniques were utilized for this examination: 1. Automated exposure control 2. Adjustment of the mA and/or kV according to patient size 3. Use of iterative reconstruction technique Findings: There is no apparent intracranial hemorrhage or abnormal extra-axial fluid collection. No new area of abnormal density is seen in the brain. The ventricles and basilar cisterns are normally positioned. Bone windows demonstrate no apparent fracture of the skull or abnormal sinus or mastoid opacification. IMPRESSION: No acute abnormality. Electronically signed by: Chuy Mosquera Jr., MD (06/06/2018 8:41 PM) [facility]
[2018-06-06 21:05] VITALS: BP 177/86
== END 2018-06-06 22:02 ==
LOC: ER 16:51
DX: S00.01XA Abrasion of scalp, initial encounter (principal); Z87.440 Personal history of urinary (tract) infections; W06.XXXA Fall from bed, initial encounter; Y93.89 Activity, other specified; Y92.89 Other specified places as the place of occurrence of the external cause; Y99.8 Other external cause status
CPT/HCPCS: 36415; 70450; 80048; 81001; 85025; 96372; 99285; J2060; P9612

== ENCOUNTER 2018-06-20 18:48 | Emergency (ER) | payer MEDICARE, OTHER ==
--- NOTE | 2018-06-20 19:29 | PHYS DOC ---
Past History Past Medical History: Seizure, UTI, Other Past Surgical History: No Surgical History Smoking: Non-smoker Alcohol Use: None Drug Use: None Adult General Chief Complaint Chief Complaint: HIP PAIN HPI HPI 63-year-old female presents with right hip pain. The patient is mentally disabled and is not verbal. She is accompanied by staff from the facility where she lives. They stated the patient has been calling out in pain when they roll her to her right side. She does not do this when the respiratory left side. They deny any falls or trauma. She has been keeping her knees toward her chest which she does from time to time, but she has been keeping them that way more the last couple days. It is 1 make sure there is nothing going on with her hip. No fever or chills with facility. No skin findings. Review of Systems Review of Systems Constitutional: Denies fever or chills [] Eyes: Denies change in visual acuity, redness, or eye pain [] HENT: Denies nasal congestion or sore throat [] Respiratory: Denies cough or shortness of breath [] Cardiovascular: No additional information not addressed in HPI [] GI: Denies abdominal pain, nausea, vomiting, bloody stools or diarrhea [] : Denies dysuria or hematuria [] Musculoskeletal: Right hip pain[] Integument: Denies rash or skin lesions [] Neurologic: Denies headache, focal weakness or sensory changes [] Endocrine: Denies polyuria or polydipsia [] All other systems were reviewed and found to be within normal limits, except as documented in this note. Allergies Allergies Allergies Coded Allergies Type Severity Reaction Last Updated Verified No Known Drug Allergies 03/10/14 No Physical Exam Physical Exam Constitutional: Well developed, well nourished, no acute distress, non-toxic appearance. [] HENT: Normocephalic, atraumatic, bilateral external ears normal, oropharynx moist, no oral exudates, nose normal. [] Eyes: PERRLA, EOMI, conjunctiva normal, no discharge. [] Neck: Normal range of motion, no tenderness, supple, no stridor. [] Cardiovascular:Heart rate regular rhythm, no murmur [] Lungs & Thorax: Bilateral breath sounds clear to auscultation [] Abdomen: Bowel sounds normal, soft, no tenderness, no masses, no pulsatile masses. [] Skin: Warm, dry, no erythema, no rash. [] Back: No tenderness, no CVA tenderness. [] Extremities: No tenderness, no cyanosis, no clubbing, ROM intact, no edema. No sign of discomfort with minimal flexion and extension, compression of the hip, greater trochanter palpation. [] Neurologic: Alert, normal motor function, normal sensory function, no focal deficits noted. [] Psychologic: Affect normal, judgement normal, mood normal. [] EKG EKG [] Radiology/Procedures Radiology/Procedures [] Impressions: Preliminary read: No acute findings. Left hip internal fixation in place. Course & Med Decision Making Course & Med Decision Making Pertinent Labs and Imaging studies reviewed. (See chart for details) Patient's x-rays are unremarkable. I am unsure why the patient has been calling out when rolled onto her right side, but I do not find any abnormality to treat. She is stable for discharge at this time. [] Dragon Disclaimer Dragon Disclaimer This electronic medical record was generated, in whole or in part, using a voice recognition dictation system. Departure Departure: Referrals: SHABANA LIZ (PCP) TRIXIE DELEON DO Jun 20, 2018 19:29
[2018-06-20] MEDS ORDERED: LORazepam 2 MG/ML VIAL IM ONE ×2 (19:30→20:00)
[2018-06-20 21:43] VITALS: BP 155/64
--- NOTE | 2018-06-21 09:31 | RAD ---
Pelvis with right hip, 3 views, 06/20/2018: HISTORY: Hip pain The bony structures are demineralized. There is an old internally fixed left hip fracture. There is a cortical offset along the right iliopectineal line. There appears to be callus formation at the fracture site suggesting that this is an old fracture. No linear lucency extending into the right hemipelvis is seen to suggest an acute fracture. No fracture of the proximal right femur is evident. There are mild degenerative changes at the symphysis pubis and at both hip joints. Abundant stool in the rectum partially obscures the sacrum. IMPRESSION: 1. Demineralization. 2. Old, internally fixed, healed proximal left femoral fracture. 3. Right pelvic fracture along the iliopectineal line which appears to partially healed an old. Electronically signed by: Rubén Fernandez MD (06/21/2018 9:27 AM) [facility]
== END 2018-06-20 21:50 ==
LOC: ER 18:48
DX: S79.911A Unspecified injury of right hip, initial encounter (principal); Z87.440 Personal history of urinary (tract) infections; X50.9XXA Other and unspecified overexertion or strenuous movements or postures, initial encounter; Y93.89 Activity, other specified; Y92.89 Other specified places as the place of occurrence of the external cause; Y99.8 Other external cause status
CPT/HCPCS: 73502; 96372; 99285; J2060

== ENCOUNTER 2018-07-17 18:39 | Inpatient (IN) | payer MEDICARE, OTHER ==
[~2018-07-17] VITALS: Ht 167.6 cm; Wt 40.4 kg
--- NOTE | 2018-07-17 18:42 | ED.ADGEN ---
Past History Past Medical History: Seizure, UTI, Other Past Surgical History: No Surgical History Smoking: Non-smoker Alcohol Use: None Drug Use: None Adult General Chief Complaint Chief Complaint ".. She had three seizures in a row.. tonic - clonic... Usually when she has this many she has an infection or something... " - Pattern Checker HPI HPI Patient is a 63 year old female from [facility], who presents with above hx and complaints of recurrent seizures. 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 Pt. has hx of Behavioral disorder. Patient is had some mental status changes over the last 2448 hrs. Patient has had no changes in her seizure meds with Keppra and Vimpat. No other residents in a [facility] are currently sick. No history of travel. Patient on previous EGD of visits has had urinary tract infections and UTI with sepsis. Patient has had previous episode of DVT and hyponatremia and hypokalemia. Patient normally follows Dr. Pace. Review of Systems Review of Systems Patient is more historian because of mental retardation All other systems were reviewed and found to be within normal limits, except as documented in this note. Family History Family History Not currently available Current Medications Current Medications Current Medications Medications (Trade) Dose Ordered Sig/Wm Start Time Stop Time Status Last Admin Dose Admin Ceftriaxone Sodium 1 gm/ Sodium Chloride 50 ml @ 100 mls/hr 1X ONCE 07/17/18 20:30 07/17/18 20:59 DC Ceftriaxone Sodium (Rocephin) 1 gm STK-MED ONCE 07/17/18 20:39 07/17/18 20:40 DC Enoxaparin Sodium (Lovenox 40mg Syringe) 40 mg BID 07/17/18 22:00 07/17/18 23:07 40 MG Info (Anti-Coagulation Monitoring By Pharmacy) 1 each PRN DAILY PRN 07/17/18 21:45 Lactated Ringer's 1,000 ml @ 1,000 mls/hr Q1H 07/17/18 18:46 07/17/18 19:46 DC 07/17/18 19:33 1,000 MLS/HR Lorazepam (Ativan) 2 mg 1X ONCE 07/17/18 19:00 07/17/18 19:10 DC Ondansetron HCl (Zofran) 4 mg PRN Q4HRS PRN 07/17/18 21:30 07/18/18 21:29 Sodium Chloride 50 ml @ As Directed STK-MED ONCE 07/17/18 20:39 07/17/18 20:40 DC See nursing for home meds Allergies Allergies Allergies Coded Allergies Type Severity Reaction Last Updated Verified No Known Drug Allergies 03/10/14 No Physical Exam Physical Exam Constitutional: In acute emotional distress, pale in appearance. [] HENT: Normocephalic, atraumatic, bilateral external ears normal, oropharynx moist, no oral exudates, nose normal. []Helmeted Eyes: PERRLA, EOMI, conjunctiva normal, no discharge. [] Neck: Normal range of motion, no tenderness, supple, no stridor. [] Cardiovascular:Heart rate regular rhythm, no murmur [] Lungs & Thorax: Bilateral breath sounds equal at apex on auscultation [] Abdomen: Bowel sounds normal, soft, no tenderness, no masses, no pulsatile masses. [] Skin: Warm, dry, no erythema, no rash. Breakdown sacral area Back: No tenderness, no CVA tenderness. [] Extremities: No marked tenderness noted, , no cyanosis, no clubbing, ROM intact , no edema. [] Scar left hip. Contraction of legs and limbs. Discoordinated. Is moving all ext. 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 Cross reacts with noxious stimuli. Pyschologic: Affect anxious Current Patient Data Vital Signs Vital Signs Date Time Temp Pulse Resp B/P (MAP) Pulse Ox O2 Delivery O2 Flow Rate FiO2 07/17/18 22:42 67 16 162/85 (110) 96 Room Air 07/17/18 19:00 98.6 Lab Results Laboratory Tests Test 07/17/18 18:46 07/17/18 18:54 07/17/18 19:20 Urine Opiates Screen Neg (NEG) Urine Methadone Screen Neg (NEG) Urine Barbiturates Neg (NEG) Urine Phencyclidine Screen Neg (NEG) Urine Amphetamine/Methamphetamine Neg (NEG) Urine Benzodiazepines Screen Neg (NEG) Urine Cocaine Screen Neg (NEG) Urine Cannabinoids Screen Neg (NEG) Urine Ethyl Alcohol Neg (NEG) Urine Collection Type U cath Urine Color Yellow Urine Clarity Hazy Urine pH 6.5 Urine Specific [place] 1.020 Urine Protein 30 mg/dl (NEG-TRACE) Urine Glucose (UA) Neg mg/dL (NEG) Urine Ketones (Stick) Neg mg/dL (NEG) Urine Blood Trace (NEG) Urine Nitrite Neg (NEG) Urine Bilirubin Neg (NEG) Urine Urobilinogen Dipstick 1 mg/dL (0.2 mg/dL) Urine Leukocyte Esterase Large (NEG) Urine RBC 3-5 /HPF (0-2) Urine WBC >40 /HPF (0-4) Urine Squamous Epithelial Cells Few /LPF Urine Bacteria Mod /HPF (0-FEW) White Blood Count 7.7 x10^3/uL (4.0-11.0) Red Blood Count 4.53 x10^6/uL (3.50-5.40) Hemoglobin 13.9 g/dL (12.0-15.5) Hematocrit 41.2 % (36.0-47.0) Mean Corpuscular Volume 91 fL (79-100) Mean Corpuscular Hemoglobin 31 pg (25-35) Mean Corpuscular Hemoglobin Concent 34 g/dL (31-37) Red Cell Distribution Width 12.9 % (11.5-14.5) Platelet Count 320 x10^3/uL (140-400) Neutrophils (%) (Auto) 75 % (31-73) H Lymphocytes (%) (Auto) 18 % (24-48) L Monocytes (%) (Auto) 6 % (0-9) Eosinophils (%) (Auto) 0 % (0-3) Basophils (%) (Auto) 0 % (0-3) Neutrophils # (Auto) 5.8 x10^3uL (1.8-7.7) Lymphocytes # (Auto) 1.4 x10^3/uL (1.0-4.8) Monocytes # (Auto) 0.5 x10^3/uL (0.0-1.1) Eosinophils # (Auto) 0.0 x10^3/uL (0.0-0.7) Basophils # (Auto) 0.0 x10^3/uL (0.0-0.2) Erythrocyte Sedimentation Rate 20 (0-25) Prothrombin Time 10.1 SEC (9.4-11.4) Prothrombin Time INR 1.0 (0.9-1.1) PTT 23 SEC (23-33) D-Dimer (Andreea) 0.71 mg/L (0.00-0.50) H Sodium Level 143 mmol/L (136-145) Potassium Level 3.3 mmol/L (3.5-5.1) L Chloride Level 103 mmol/L (98-107) Carbon Dioxide Level 32 mmol/L (21-32) Anion Gap 8 (6-14) Blood Urea Nitrogen 17 mg/dL (7-20) Creatinine 0.4 mg/dL (0.6-1.0) L Estimated GFR (Cockcroft-Gault) 160.7 Glucose Level 89 mg/dL (70-99) Lactic Acid Level 1.3 mmol/L (0.4-2.0) Calcium Level 9.2 mg/dL (8.5-10.1) Magnesium Level 2.4 mg/dL (1.8-2.4) Total Bilirubin 0.5 mg/dL (0.2-1.0) Direct Bilirubin < 0.1 mg/dL (0.0-0.2) Aspartate Amino Transferase (AST) 38 U/L (15-37) H Alanine Aminotransferase (ALT) 19 U/L (14-59) Alkaline Phosphatase 238 U/L (46-116) H Creatine Kinase 57 U/L (26-192) Troponin I Quantitative < 0.017 ng/mL (0-0.055) WB-Xis-B-Type Natriuretic Peptide 167 pg/mL (0-124) H Total Protein 8.1 g/dL (6.4-8.2) Albumin 4.5 g/dL (3.4-5.0) Lipase 130 U/L (73-393) EKG EKG My interpretation EKG shows a sinus rhythm at 78 bpm. There is some leftward axis. Some nonspecific changes. But no findings acute STEMI with contralateral changes.[] Radiology/Procedures Radiology/Procedures My interpretation chest x-ray shows rotated and contracted film. Does have a elevation of right diaphragm. There is some infiltrate or atelectasis along right cardiac border. Degenerative joint changes. My interpretation of CT of head shows no shift, mass, edema, bleed, or fracture. There is white matter changes. And atrophy. Course & Med Decision Making Course & Med Decision Making Pertinent Labs and Imaging studies reviewed. (See chart for details) Pt. admitted to Dr. King [] Final Impression Final Impression 1. Recurrent Seizures 2. UTI 3. Elevated D-dimer 0.71 4. History of cerebral palsy 5. History of mild retardation-developmental delay 6. Behavior disorder 7. Hypokalemia 3.3 8. Elevated alkaline phosphatase 238[] Dragon Disclaimer Dragon Disclaimer This electronic medical record was generated, in whole or in part, using a voice recognition dictation system. NATACHA LUCIANO MD Jul 17, 2018 18:42
[2018-07-17] MEDS ORDERED: IV RINGERS SOLUTION,LACTATED 1,000 ML IV SCH (18:46)
[2018-07-17] MEDS ORDERED: LORazepam 2 MG/ML VIAL IV ONE (19:00)
[2018-07-17] MEDS ORDERED: LORazepam 1 MG TABLET PO ONE (19:00)
[2018-07-17 19:31] LABS: BACTERIA,URINE MOD /HPF (0-FEW); BILIRUBIN,URINE NEG (NEG); CLARITY,URINE HAZY; COLOR,URINE YELLOW; GLUCOSE,URINE NEG (NEG); NITRITE,URINE NEG (NEG); SQUAMOUS EPITHELIAL CELL,UR FEW /LPF; UROBILINOGEN,URINE 1 mg/dL (0.2 mg/dL); WBC,URINE >40 /HPF (0-4)
[2018-07-17 19:39] LABS: BASO % 0 % (0-3); EOS % 0 % (0-3); HEMATOCRIT 41.2 % (36.0-47.0); HEMOGLOBIN 13.9 g/dL (12.0-15.5); LYMPH # 1.4 x10^3/uL (1.0-4.8); LYMPH % 18 % (24-48); MEAN CORPUSCULAR HEMOGLOBIN 31 pg (25-35); MEAN CORPUSCULAR HGB CONC 34 g/dL (31-37); MEAN CORPUSCULAR VOLUME 91 fL (79-100); MONO # 0.5 x10^3/uL (0.0-1.1); MONO % 6 % (0-9); NEUT # 5.8 x10^3uL (1.8-7.7); NEUT % 75 % (31-73); PLATELET COUNT 320 x10^3/uL (140-400); RED BLOOD COUNT 4.53 x10^6/uL (3.50-5.40); RED CELL DISTRIBUTION WIDTH 12.9 % (11.5-14.5); WHITE BLOOD COUNT 7.7 x10^3/uL (4.0-11.0)
--- NOTE | 2018-07-17 19:44 | EKG ---
[address] [address] Test Date: 2018-07-17 Test Time: 19:40:07 Pat Name: CARLOS VANN Department: Room: Gender: F Manager Commodities: : 1955 Requested By: NATACHA LUCIANO Order Number: [id number] Reading MD: Jose Mendenhall Measurements Intervals Center Rate: 78 P: 59 [place]: 142 QRS: -11 QRSD: 76 T: 38 QT: 380 QTc: 437 Interpretive Statements SINUS RHYTHM LEFTWARD AXIS Electronically Signed On 07-19-2018 11:22:06 CDT by Jose Mendenhall
[2018-07-17] MEDS ORDERED: IV NORMAL SALINE 50ML 50 ML ONE (20:39)
[2018-07-17] MEDS ORDERED: cefTRIAXone SODIUM 1 GM VIAL IV ONE (20:39)
[2018-07-17 20:46] LABS: SEDIMENTATION RATE 20 (0-25)
--- NOTE | 2018-07-17 21:21 | RAD ---
PQRS Compliance statement: One or more of the following individualized dose reduction techniques were utilized for this examination: 1. Automated exposure control. 2. Adjustment of the mA and/or kV according to patient size. 3. Use of iterative reconstruction technique. Indication:Recurrent seizure. Hx mentally and physically handicapped
TECHNIQUE: CT head without IV contrast COMPARISON:06/06/2018 FINDINGS: No pathologic extra-axial or intra-axial fluid collection. The ventricles and basal cisterns are within normal limits. No acute intracranial bleed. No focal loss of singh-white differentiation. Visualized orbits within normal limits. No suspicious calvarial lesion. Visualized paranasal sinuses and mastoid air cells are clear. IMPRESSION: No acute intracranial process. If concern for acute ischemic stroke is high, please consider MRI brain. Electronically signed by: Aram Willis DO (07/17/2018 9:18 PM) [facility]
--- NOTE | 2018-07-17 21:23 | RAD ---
Indication:Seizure. Patient mentally and physically handicapped - unable to sit up or follow breathing instructions. TECHNIQUE:Portable AP chest X-ray COMPARISON:04/22/2016 FINDINGS: Suboptimal exam due to patient being rotated to the right side. Heart appears normal in size. Lungs are clear. No pneumothorax or pleural effusion. Visualized bony thorax is within normal limits. IMPRESSION: Suboptimal exam due to positioning. No apparent acute pulmonary process. Electronically signed by: Aram Willis DO (07/17/2018 9:19 PM) [facility]
[2018-07-17] MEDS ORDERED: ONDANSETRON PF 4 MG/2 ML VIAL. IV PRN (21:30)
[2018-07-17 21:45] LABS: ALBUMIN 4.5 g/dL (3.4-5.0); ANION GAP 8 (6-14); BLOOD UREA NITROGEN 17 mg/dL (7-20); CARBON DIOXIDE 32 mmol/L (21-32); CHLORIDE 103 mmol/L (98-107); CREATININE 0.4 mg/dL (0.6-1.0); GFR 160.7; POTASSIUM 3.3 mmol/L (3.5-5.1); SODIUM 143 mmol/L (136-145); TOTAL PROTEIN 8.1 g/dL (6.4-8.2)
[2018-07-17] MEDS ORDERED: ANTI-COAG MONITOR BY PHARMACY. MC PRN (21:45)
[2018-07-17 21:46] LABS: ALK PHOS 238 U/L (46-116); ALT (SGPT) 19 U/L (14-59); AST (SGOT) 38 U/L (15-37); CALCIUM 9.2 mg/dL (8.5-10.1); GLUCOSE 89 mg/dL (70-99); TOTAL BILIRUBIN 0.5 mg/dL (0.2-1.0)
[2018-07-17 21:47] LABS: DIRECT BILIRUBIN < 0.1 mg/dL (0.0-0.2); LIPASE 130 U/L (73-393); MAGNESIUM 2.4 mg/dL (1.8-2.4)
--- NOTE | 2018-07-17 22:57 | NUR ---
ADMISSION: The patient, CARLOS VANN, 63 y/o, F admitted by BC ORTEZ DO, was given written information regarding hospital policies, unit procedures and contact persons. Pt arrived to room 107 via gurney, accompanied by [facility] and nursing sup. Pt here for multiple seizures today, witnessed by [facility] staff, longest of which was reported to be 5 minutes in duration. Pt found to have UTI, received dose of Rocephin IVPB. Pt has a helmet on for safety. Bed rails have been padded for seizure precautions. Patient is non-verbal, difficult to redirect. Per [facility] staff, pt can be combative with vitals, cares, and medical transport specialist. Pt is currently sedated from admin of Ativan 1mg IVP while in ED. Able to change soiled brief and obtain VS without difficulty. Pt on Lovenox for VTE with venous dopplers scheduled for AM. Bed in lowest position and alarmed for safety. Valuables were checked and logged. Vimpat oral solution brought from home as we do not carry it in formulary, placed in med room.
[2018-07-17 23:05] VITALS: BP 147/77
[2018-07-17] MEDS: ENOXAPARIN 40 MG/0.4 ML SYRINGE. SQ SCH (23:07)
[2018-07-17] MEDS ORDERED: POTA20LI27 PO (23:15)
[2018-07-18 05:58] VITALS: BP 145/74
[2018-07-18 06:29] LABS: BARBITURATES NEG (NEG); BENZODIAZEPINES NEG (NEG); CANNABINOIDS NEG (NEG); COCAINE NEG (NEG); METHADONE NEG (NEG); OPIATES NEG (NEG); PHENCYCLIDINE NEG (NEG)
[2018-07-18 06:31] LABS: AMPHETAMINE/METHAMPHETAMINE NEG (NEG)
[2018-07-18 07:01] LABS: BASO # 0.1 x10^3/uL (0.0-0.2); BASO % 1 % (0-3); EOS % 1 % (0-3); HEMATOCRIT 40.7 % (36.0-47.0); HEMOGLOBIN 13.6 g/dL (12.0-15.5); LYMPH # 1.3 x10^3/uL (1.0-4.8); LYMPH % 23 % (24-48); MEAN CORPUSCULAR HEMOGLOBIN 30 pg (25-35); MEAN CORPUSCULAR HGB CONC 33 g/dL (31-37); MEAN CORPUSCULAR VOLUME 91 fL (79-100); MONO # 0.4 x10^3/uL (0.0-1.1); MONO % 8 % (0-9); NEUT # 3.9 x10^3uL (1.8-7.7); NEUT % 68 % (31-73); PLATELET COUNT 308 x10^3/uL (140-400); RED BLOOD COUNT 4.49 x10^6/uL (3.50-5.40); RED CELL DISTRIBUTION WIDTH 13.1 % (11.5-14.5); WHITE BLOOD COUNT 5.7 x10^3/uL (4.0-11.0)
[2018-07-18 07:14] LABS: CALCIUM 8.8 mg/dL (8.5-10.1); CREATININE 0.6 mg/dL (0.6-1.0); GFR 100.6
[2018-07-18 07:19] LABS: POTASSIUM 2.8 mmol/L (3.5-5.1)
[2018-07-18] MEDS ORDERED: POTASSIUM CHLORIDE 20 MEQ/15 ML ORAL LIQUID. PO SCH (07:30)
--- NOTE | 2018-07-18 07:42 | NUR ---
Critical lab value called from Luke in lab, K+ 2.8, Dr. King notified at 0722, ordered received for electrolyte imbalance protocol. Will continue to monitor.
[2018-07-18] MEDS: LACOSAMIDE 50 MG TABLET PO SCH ×2 (08:51→20:22)
[2018-07-18] MEDS: ENOXAPARIN 40 MG/0.4 ML SYRINGE. SQ SCH ×2 (08:51→20:23)
[2018-07-18] MEDS ORDERED: LACOSAMIDE 200 MG PO SCH (09:00)
[2018-07-18] MEDS: POTASSIUM CHLORIDE 10MEQ 100 ML IV SCH ×4 (12:15→20:22)
--- NOTE | 2018-07-18 13:25 | PDOC1 ---
History of Present Illness History of Present Illness 63-year-old female presented to the emergency department from [facility] with pillowcase cleaner for recurrent seizures. Senior Climate Advisor reported that the patient had 3 seizures in a row described as tonic- clonic patient normally takes Keppra and Vimpat. Senior Climate Advisor relays that patient often reacts this way when she has an acute infection and that the patient has had some mental status changes over the last 1-2 days. half-way staff have not observed any signs of infection, no fever cough vomiting rash. Patient with cerebral palsy at and mild mental retardation, then developmental delay after sepsis as a child. History is limited to the contents of the chart as patient is nonverbal. Past medical history: Recurrent seizures, UTIsepsis, DVT, behavior disorder Past surgical history: Negative Social history: Patient [facility] in a [facility] her DPOA is the director of early childhood education at that facility Chief Complaint: SEIZURE Allergies: Coded Allergies: No Known Drug Allergies (Unverified , 03/10/14) Past Medical History DIRECTOR OF TEACHER EDUCATION: Seizure Review of Systems Review Of Systems Due to the patient's condition review of systems is per history of present illness, full accurate review of systems is unobtainable Medications Current Medications Lactated Ringer's 1,000 ml @ 1,000 mls/hr Q1H IV Last administered on at 19:33; Start 07/17/18 at 18:46; Stop 07/17/18 at 19:46; Status DC Lorazepam (Ativan) 1 mg 1X ONCE IV Last administered on 07/17/18at 19:32; Start 07/17/18 at 19:00; Stop 07/17/18 at 19:02; Status DC Lorazepam (Ativan) 2 mg 1X ONCE PO ; Start 07/17/18 at 19:00; Stop 07/17/18 at 19:10; Status DC Ceftriaxone Sodium 1 gm/ Sodium Chloride 50 ml @ 100 mls/hr 1X ONCE IV ; Start 07/17/18 at 20:30; Stop 07/17/18 at 20:59; Status DC Sodium Chloride 50 ml @ As Directed STK-MED ONCE .ROUTE ; Start 07/17/18 at 20: 39; Stop 07/17/18 at 20:40; Status DC Ceftriaxone Sodium (Rocephin) 1 gm STK-MED ONCE IV ; Start 07/17/18 at 20:39; Stop 07/17/18 at 20:40; Status DC Ondansetron HCl (Zofran) 4 mg PRN Q4HRS PRN IV NAUSEA/VOMITING; Start 07/17/18 at 21:30; Stop 07/18/18 at 21:29 Enoxaparin Sodium (Lovenox 40mg Syringe) 40 mg BID SQ Last administered on 07/18at 08:51; Start 07/17/18 at 22:00 Info (Anti-Coagulation Monitoring By Pharmacy) 1 each PRN DAILY PRN MC SEE COMMENTS; Start 07/17/18 at 21:45 Potassium Chloride (KCl Oral Soln) 40 meq Q4H PO Last administered on at 08:51; Start 07/18/18 at 07:30; Stop 07/18/18 at 11:28; Status DC Non-Formulary Medication (Lacosamide (Vimpat)) 200 mg BID PO ; Start 07/18/18 at 09:00; Status UNV Levetiracetam (Keppra Oral Soln) 1,500 mg BID PEG Last administered on at 08:52; Start 07/18/18 at 09:00 Lacosamide (Vimpat) 200 mg BID PO Last administered on 07/18/18at 08:51; Start 07/18/18 at 09:00 Potassium Chloride 100 ml @ 100 mls/hr Q1H IV ; Start 07/18/18 at 12:15; Stop 07/18/18 at 16:14 Active Scripts Active Reported Potassium Chloride Oral Liquid (Potassium Chloride) 20 Meq/15 Ml Liquid 13 Meq PO TIDAC Catapres-Tts 1 (Clonidine) 1 Each Patch.tdwk 1 Each TD WEEKLY on Saturdays Vimpat (Lacosamide) 10 Mg/1 Ml Solution 200 Mg PO BID LAST DOSE GIVEN: DATE: has not had TIME: NEXT DOSE DUE: DATE: TODAY TIME: PM Levetiracetam 100 Mg/1 Ml Solution 1,500 Mg PO BID LAST DOSE GIVEN: DATE: TODAY TIME: AM NEXT DOSE DUE: DATE: TODAY TIME: PM Docusate Sodium 50 Mg/5 Ml Liquid 100 Mg PO BID LAST DOSE GIVEN: DATE:has not had TIME: NEXT DOSE DUE: DATE: RESUME TIME: WHEN NEEDED Exam Vital Signs Vital Signs Date Time Temp Pulse Resp B/P (MAP) Pulse Ox O2 Delivery O2 Flow Rate FiO2 07/18/18 08:00 Room Air 07/18/18 05:58 98.0 72 20 145/74 (97) 99 General Appearance: Alert, Other (she's fine on the left alone gets very anxious when stimulated) HEENT: Atraumatic, Mucous membr. moist/pink Respiratory: Clear to auscultation, Normal air movement Heart: Regular rate, No murmurs Abdominal: Normal bowel sounds, Soft, No masses Extremities: Other (contractures are noted at bilateral upper and lower extremities, discoordinated and erratic movements) Neuro: Other (she is alert and anxious, her neurologic and mental status are at her baseline) Assessment/Plan Assessment/Plan Recurrent seizure: Lactic acid was 1.3 question whether actual seizure? Continue Keroger and Johnt, neurology consultation Dr. Lowe UTI: Rocephin 1 g IV every 24 hours await culture and sensitivity Elevated d-dimer 0.71: Extremity Doppler studies are pending. Continue Lovenox 40 mg subcutaneous twice a day Hypokalemia potassium: Potassium dropped from 3.3 in the ED to 2.8 this morning , electrolyte protocol initiated History of cerebral palsy, mental retardation, developmental delay, and behavior disorder COURSE Allergies Coded Allergies Type Severity Reaction Last Updated Verified No Known Drug Allergies 03/10/14 No Laboratory Tests Test 07/17/18 18:46 07/17/18 18:54 07/17/18 19:20 07/18/18 06:40 Urine Opiates Screen Neg (NEG) Urine Methadone Screen Neg (NEG) Urine Barbiturates Neg (NEG) Urine Phencyclidine Screen Neg (NEG) Urine Amphetamine/Methamphetamine Neg (NEG) Urine Benzodiazepines Screen Neg (NEG) Urine Cocaine Screen Neg (NEG) Urine Cannabinoids Screen Neg (NEG) Urine Ethyl Alcohol Neg (NEG) Urine Collection Type U cath Urine Color Yellow Urine Clarity Hazy Urine pH 6.5 Urine Specific Oldhams 1.020 Urine Protein 30 mg/dl (NEG-TRACE) Urine Glucose (UA) Neg mg/dL (NEG) Urine Ketones (Stick) Neg mg/dL (NEG) Urine Blood Trace (NEG) Urine Nitrite Neg (NEG) Urine Bilirubin Neg (NEG) Urine Urobilinogen Dipstick 1 mg/dL (0.2 mg/dL) Urine Leukocyte Esterase Large (NEG) Urine RBC 3-5 /HPF (0-2) Urine WBC >40 /HPF (0-4) Urine Squamous Epithelial Cells Few /LPF Urine Bacteria Mod /HPF (0-FEW) White Blood Count 7.7 x10^3/uL (4.0-11.0) 5.7 x10^3/uL (4.0-11.0) Red Blood Count 4.53 x10^6/uL (3.50-5.40) 4.49 x10^6/uL (3.50-5.40) Hemoglobin 13.9 g/dL (12.0-15.5) 13.6 g/dL (12.0-15.5) Hematocrit 41.2 % (36.0-47.0) 40.7 % (36.0-47.0) Mean Corpuscular Volume 91 fL (79-100) 91 fL (79-100) Mean Corpuscular Hemoglobin 31 pg (25-35) 30 pg (25-35) Mean Corpuscular Hemoglobin Concent 34 g/dL (31-37) 33 g/dL (31-37) Red Cell Distribution Width 12.9 % (11.5-14.5) 13.1 % (11.5-14.5) Platelet Count 320 x10^3/uL (140-400) 308 x10^3/uL (140-400) Neutrophils (%) (Auto) 75 % (31-73) 68 % (31-73) Lymphocytes (%) (Auto) 18 % (24-48) 23 % (24-48) Monocytes (%) (Auto) 6 % (0-9) 8 % (0-9) Eosinophils (%) (Auto) 0 % (0-3) 1 % (0-3) Basophils (%) (Auto) 0 % (0-3) 1 % (0-3) Neutrophils # (Auto) 5.8 x10^3uL (1.8-7.7) 3.9 x10^3uL (1.8-7.7) Lymphocytes # (Auto) 1.4 x10^3/uL (1.0-4.8) 1.3 x10^3/uL (1.0-4.8) Monocytes # (Auto) 0.5 x10^3/uL (0.0-1.1) 0.4 x10^3/uL (0.0-1.1) Eosinophils # (Auto) 0.0 x10^3/uL (0.0-0.7) 0.0 x10^3/uL (0.0-0.7) Basophils # (Auto) 0.0 x10^3/uL (0.0-0.2) 0.1 x10^3/uL (0.0-0.2) Erythrocyte Sedimentation Rate 20 (0-25) Prothrombin Time 10.1 SEC (9.4-11.4) Prothromb Time International Ratio 1.0 (0.9-1.1) Activated Partial Thromboplast Time 23 SEC (23-33) D-Dimer (Andreea) 0.71 mg/L (0.00-0.50) Sodium Level 143 mmol/L (136-145) 145 mmol/L (136-145) Potassium Level 3.3 mmol/L (3.5-5.1) 2.8 mmol/L (3.5-5.1) Chloride Level 103 mmol/L (98-107) 106 mmol/L (98-107) Carbon Dioxide Level 32 mmol/L (21-32) 35 mmol/L (21-32) Anion Gap 8 (6-14) 4 (6-14) Blood Urea Nitrogen 17 mg/dL (7-20) 12 mg/dL (7-20) Creatinine 0.4 mg/dL (0.6-1.0) 0.6 mg/dL (0.6-1.0) Estimated GFR (Cockcroft-Gault) 160.7 100.6 Glucose Level 89 mg/dL (70-99) 79 mg/dL (70-99) Lactic Acid Level 1.3 mmol/L (0.4-2.0) Calcium Level 9.2 mg/dL (8.5-10.1) 8.8 mg/dL (8.5-10.1) Magnesium Level 2.4 mg/dL (1.8-2.4) Total Bilirubin 0.5 mg/dL (0.2-1.0) Direct Bilirubin < 0.1 mg/dL (0.0-0.2) Aspartate Amino Transf (AST/SGOT) 38 U/L (15-37) Alanine Aminotransferase (ALT/SGPT) 19 U/L (14-59) Alkaline Phosphatase 238 U/L (46-116) Creatine Kinase 57 U/L (26-192) Troponin I Quantitative < 0.017 ng/mL (0-0.055) NY-Dzt-Y-Type Natriuretic Peptide 167 pg/mL (0-124) Total Protein 8.1 g/dL (6.4-8.2) Albumin 4.5 g/dL (3.4-5.0) Lipase 130 U/L (73-393) Thyroid Stimulating Hormone (TSH) 1.919 uIU/mL (0.358-3.740) Current Medications Medications (Trade) Dose Ordered Sig/Wm Route PRN Reason Start Time Stop Time Status Last Admin Dose Admin Lactated Ringer's 1,000 ml @ 1,000 mls/hr Q1H IV 07/17/18 18:46 07/17/18 19:46 DC 07/17/18 19:33 Lorazepam (Ativan) 1 mg 1X ONCE IV 07/17/18 19:00 07/17/18 19:02 DC 07/17/18 19:32 Lorazepam (Ativan) 2 mg 1X ONCE PO 07/17/18 19:00 07/17/18 19:10 DC Ceftriaxone Sodium 1 gm/ Sodium Chloride 50 ml @ 100 mls/hr 1X ONCE IV 07/17/18 20:30 07/17/18 20:59 DC Sodium Chloride 50 ml @ As Directed STK-MED ONCE .ROUTE 07/17/18 20:39 07/17/18 20:40 DC Ceftriaxone Sodium (Rocephin) 1 gm STK-MED ONCE IV 07/17/18 20:39 07/17/18 20:40 DC Ondansetron HCl (Zofran) 4 mg PRN Q4HRS PRN IV NAUSEA/VOMITING 07/17/18 21:30 07/18/18 21:29 Enoxaparin Sodium (Lovenox 40mg Syringe) 40 mg BID SQ 07/17/18 22:00 07/18/18 08:51 Info (Anti-Coagulation Monitoring By Pharmacy) 1 each PRN DAILY PRN MC SEE COMMENTS 07/17/18 21:45 Potassium Chloride (KCl Oral Soln) 40 meq Q4H PO 07/18/18 07:30 07/18/18 11:28 DC 07/18/18 08:51 Non-Formulary Medication (Lacosamide (Vimpat)) 200 mg BID PO 07/18/18 09:00 UNV Levetiracetam (Keppra Oral Soln) 1,500 mg BID PEG 07/18/18 09:00 07/18/18 08:52 Lacosamide (Vimpat) 200 mg BID PO 07/18/18 09:00 07/18/18 08:51 Potassium Chloride 100 ml @ 100 mls/hr Q1H IV 07/18/18 12:15 07/18/18 16:14 I & O 07/18/18 00:00 Intake Total 1000 ml Balance 1000 ml Orders Procedure Category Date Status Time Vital Signs ER 07/17/18 Transmitted 18:46 Bp Monitoring ER 07/17/18 Transmitted 18:46 Histology Aide ER 07/17/18 Transmitted 18:46 Continuous Pulse ER 07/17/18 Transmitted Oximetry 18:46 Temperature Monitoring ER 07/17/18 Transmitted 18:46 Saline Lock ER 07/17/18 Transmitted 18:46 Cath Bladder ER 07/17/18 Transmitted Non-Indwelling 18:46 Basic Metabolic Panel LAB 07/17/18 Complete 18:46 Cbc W Autodiff LAB 07/17/18 Complete 18:46 Troponin I LAB 07/17/18 Complete 18:46 Protime LAB 07/17/18 Complete 18:46 Creatine Kinase LAB 07/17/18 Complete 18:46 Lipase LAB 07/17/18 Complete 18:46 Hepatic Panel LAB 07/17/18 Complete 18:46 Magnesium LAB 07/17/18 Complete 18:46 Thyroid Stim Hormone LAB 07/17/18 Complete (Tsh) 18:46 D-Dimer LAB 07/17/18 Complete 18:46 Ua, Cult If Indicated LAB 07/17/18 Complete 18:46 Nt-Pro Bnp LAB 07/17/18 Complete 18:46 Drugs Of Abuse Ur LAB 07/17/18 Complete 18:46 Portable Chest 1v RAD 07/17/18 Resulted 18:46 Ct Head Wo Contrast CT 07/17/18 Resulted 18:46 12 Lead Ekg EKG 07/17/18 Complete 18:46 Partial LAB 07/17/18 Complete Thromboplastin Time 18:46 Pulse Oximetry: CADE 07/17/18 In Process Standing Order 18:46 Iv Ringers PHA 07/17/18 Complete Solution,Lactated (Iv 18:46 Sedimentation Rate LAB 07/17/18 Complete 18:46 Lorazepam (Ativan) PHA 07/17/18 Complete 19:00 Blood Culture NACHO 07/17/18 In Process 18:46 Lorazepam (Ativan) PHA 07/17/18 Complete 19:00 Lactic Acid LAB 07/17/18 Complete 19:11 Urine Culture NACHO 07/17/18 In Process 19:31 Ceftriaxone Sodium PHA 07/17/18 Complete (Rocephin) 20:30 Iv Normal Saline 50ml PHA 07/17/18 Complete (Iv Sodium Chlorid 20:39 Ceftriaxone Sodium PHA 07/17/18 Complete (Rocephin) 20:39 Ed Bridge Order ADT 07/17/18 Transmitted 21:26 Code Status CODE 07/17/18 Transmitted 21:26 Vital Signs, Per [facility] 07/17/18 In Process Protocol 21:26 Advance Diet As CADE 07/17/18 In Process Tolerated 21:26 Up In Chair With [facility] 07/17/18 In Process Assistance 21:26 Fall Precautions [facility] 07/17/18 In Process 21:26 Cbc W Autodiff LAB 07/18/18 Complete 06:00 Basic Metabolic Panel LAB 07/18/18 Complete 06:00 Ondansetron Pf PHA 07/17/18 In Process (Zofran) 21:30 Neuro Check Q 4 Hrs [facility] 07/17/18 In Process 21:26 Incentive Spirometry [facility] 07/17/18 In Process 21:26 Assess Patient's Risk [facility] 07/17/18 In Process For Skin 21:26 Enoxaparin 40mg [facility] 07/17/18 In Process Syringe (Lovenox 40mg 22:00 Anti-Coag Monitor By [facility] 07/17/18 In Process Pharmacy (Anti-Coag 21:45 Rehab Screening (Pt, REHAB 07/18/[address], [address]) 07:00 Admit Orders ADT 07/17/18 Transmitted [facility]sa By [facility] LAB 07/17/18 In Process 23:19 Case Management CM1 07/18/18 Transmitted Referral 07:00 High Risk Dc CONS 07/17/18 Transmitted Readmission 23:31 Dysphagia Ii DIET 07/18/18 Transmitted Breakfast Potassium Chloride PHA 07/18/18 Complete Oral Soln (Kcl Oral S 07:30 Levetiracetam Oral PHA 07/18/18 In Process Soln (Keppra Oral Lou 09:00 Lacosamide (Vimpat) PHA 07/18/18 In Process 09:00 Pt. On Electrolyte CADE 07/18/18 In Process Protocol 10:[address] Lab CADE 07/18/18 In Process Order 11:14 Consult Physician By CONS 07/18/18 Transmitted Name 11:28 Potassium Chloride PHA 07/18/18 In Process 10meq (Kcl Premix 10m 12:15 Venous Lower US 07/18/18 Taken Extremity Right 07:30 Vital Signs Date Time Temp Pulse Resp B/P (MAP) Pulse Ox O2 Delivery O2 Flow Rate FiO2 07/18/18 08:00 Room Air 07/18/18 05:58 98.0 72 20 145/74 (97) 99 BC ORTEZ DO Jul 18, 2018 13:25
--- NOTE | 2018-07-18 13:28 | RAD ---
Bilateral lower extremity venous ultrasound-incomplete exam, 07/18/2018 History: Elevated d-dimer Duplex evaluation of the deep veins in the lower extremities was attempted including grayscale, color-flow and spectral Doppler analysis. On the right, the common femoral and superficial femoral veins are patent. The patient was combative and would not allow further scanning of the right leg or left leg at this time. Electronically signed by: Rubén Fernandez MD (07/18/2018 1:24 PM) [facility]
[2018-07-18 14:45] VITALS: BP 158/81
[2018-07-18 19:15] VITALS: BP 150/81
[2018-07-19 05:25] VITALS: BP 156/84
[2018-07-19] MEDS: ENOXAPARIN 40 MG/0.4 ML SYRINGE. SQ SCH ×2 (08:14→20:33)
[2018-07-19] MEDS: LACOSAMIDE 50 MG TABLET PO SCH ×2 (08:14→20:31)
--- NOTE | 2018-07-19 09:21 | CONS ---
DATE OF CONSULTATION: 07/18/2018 NEUROLOGIC CONSULTATION REFERRING PHYSICIAN: Dr. King. REASON FOR CONSULTATION: Possible breakthrough seizure. HISTORY OF PRESENT ILLNESS: This is a 63-year-old female, who is known to me from previous admission to the same hospital, was admitted through Emergency Room yesterday after she presented with possible breakthrough seizure. 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 The patient, who lives in [facility], was reported to have clonic tonic seizure-like activities reported by her supervisor silvering department at the senior living. Currently, no further information is available about the duration of the seizure and the patient is not able to provide any information due to mental retardation. According to the nursing staff, the patient refused medication today. She has not had any witnessed seizure since being in the hospital. PAST MEDICAL HISTORY: Behavior disorder, DVT, urosepsis, and seizure disorder and cerebral palsy with mental retardation. SOCIAL HISTORY: The patient is a resident at a senior living. No further information available at this time. CURRENT HOME MEDICATIONS: Include Vimpat 200 mg b.i.d. and Keppra 1500 mg b.i.d. ALLERGIES: No known drug allergies. REVIEW OF SYSTEMS: Not obtainable. PHYSICAL EXAMINATION: GENERAL: Well-developed and well-nourished female, not in acute distress. She weighs 86.3 pounds. VITAL SIGNS: Blood pressure 158/81, respiratory rate 20, pulse is 77, temperature 98.5, and oxygen saturation 97% on room air. HEENT: She is normocephalic, atraumatic, otherwise the general and neurological examination is very limited as the patient is very hesitant to examination and not able to communicate. DIAGNOSTIC DATA: Head CT scan revealed no evidence of acute intracranial process. Chest x-ray revealed no evidence of acute cardiopulmonary process. Because of elevated D-dimer at 0.71, a venous ultrasound of the lower extremities was not conclusive. LABORATORY DATA: CBC revealed white blood cells of 5700, hemoglobin 15.6, hematocrit 40.7, and platelet count ____. Chemistry revealed sodium of 145, potassium 2.8, chloride 106, CO2 of 35, BUN 12, creatinine 0.6, glucose 79, and calcium is 8.8. Urinalysis is positive for urinary tract infection with large leukocyte esterase and white blood cells of more than 40 with trace nitrite and blood. Urine drug screen is negative. IMPRESSION: 1. Longstanding history of seizure disorder. The patient has not been compliant with medication. 2. Mental retardation and behavior disturbances. 3. Urinary tract infections. 4. Hypokalemia. RECOMMENDATIONS: 1. Continue with current home medications with Vimpat and Keppra. 2. Potassium supplements. 3. Continue with current medication for urinary tract infections. M August TYLER MD DR: EFRAIN/aly JOB#: [id number] / [id number]
[2018-07-19] MEDS ORDERED: cloNIDine TTS-1 1 PATCH PATCH TD SCH (10:00)
[2018-07-19] MEDS: DOCUSATE 100 MG/10 ML SOLUTION. PO SCH ×2 (10:07→20:31)
[2018-07-19] MEDS: POTASSIUM CHLORIDE 20 MEQ/15 ML ORAL LIQUID. PO SCH ×2 (10:22→17:20)
[2018-07-19 10:46] VITALS: BP 153/83
[2018-07-19 19:33] VITALS: BP 123/94
[2018-07-19] MEDS: LACTOBACILLUS RHAMNOSUS GG 1 CAPSULE. PO SCH (20:31)
--- NOTE | 2018-07-19 21:43 | PN ---
DATE: SUBJECTIVE: The patient is resting flat in bed, in no apparent distress. Awake, alert, but nonverbal. Nursing staff did not voice any concern. In particular, she has no further episodes of seizure. She has been stable with no fevers, chills or rigors. Her potassium has dropped down to 2.8, has been supplemented and is now up to 3.5. Her urinalysis was consistent with urinary tract infection; however, urine culture is still pending at the time of this dictation. PHYSICAL EXAMINATION: GENERAL: When I examined her this morning, she was pale, cachectic, but not jaundiced, cyanosis or thyromegaly. No jugular venous distension. No lower limb edema. VITAL SIGNS: Her heart rate was 61, blood pressure was 156/84, temperature was 97.3, respiratory rate was 18 and oxygen saturation was 98% on room air. HEAD, EYES, EARS, NOSE AND THROAT: Normocephalic, atraumatic. She has helmet in place. NECK: Supple. CARDIAC: Normal first and second heart sounds with no gallop, rub or murmur. CHEST: Clear to auscultation. No crepitation or rhonchi. ABDOMEN: Scaphoid, soft, nontender. NEUROLOGIC: She is awake, alert, opens eyes, tracks, but does not follow command. She is nonverbal. She has cerebral palsy. She is sleeping in a position in the bed. Her intake over the last 24 hours was 1050, no output was recorded. LABORATORY DATA: As of this morning showed a white cell count of 5700, hemoglobin 13.6, hematocrit 40.1, MCV 91, and platelet count 308,000. Her chemistry as of this morning showed a serum sodium of 145, potassium 3.5, chloride 106, bicarbonate 35, anion gap of 4, BUN 12, creatinine 0.6, estimated GFR was 100 mL per minute. Her glucose was 79, lactic acid is only 1.3, calcium was 8.8. TSH of 1.919. Her prothrombin time was 10.1, INR of 1, aPTT was 23. D-dimer was 0.71. Urinalysis showed the urine was yellow, hazy with a pH of 6.5, specific gravity 1.020. There is small amount of protein. The urine was negative for glucose, ketones, trace of blood, negative for nitrite. However, there is large amount of leukocyte esterase with 3-5 rbc's and more than 40 wbc's, moderate amount of bacteria. Her nasal screen for MRSA by PCR was negative. IMPRESSION: In summary, this is a 63-year-old female patient, who was admitted with recurrent episode of breakthrough seizures. She has 3 seizures in a row described by her hydroelectric plant structural engineer as tonic clonic in nature. Despite the fact that she is on Keppra and Vimpat, her hydroelectric plant structural engineer stated that the patient ____ whenever she has an acute infection. The patient has had some mental status awake overnight counselor the last 1-2 days. She was basically admitted as the urinalysis showed that she has urinary tract infection, although so far urine culture is still pending at the time of this dictation. Hypokalemia, resolved. PLAN: My plan is to continue with IV Rocephin. She was started on oral potassium supplement, continue. I will reconcile all her medication. DENISE ACUÑA MD DR: TULIO/aly JOB#: [id number] / [id number]
--- NOTE | 2018-07-20 01:04 | PN ---
DATE: 07/19/2018 SUBJECTIVE: The patient has not had any recurrent seizure. On occasion, she resisted taking her medication over her food. OBJECTIVE: GENERAL: Well-developed, well-nourished female in no acute distress. VITAL SIGNS: Blood pressure 156/84, respiratory rate 18, pulse 61, temperature 97.3, oxygen saturation 98% on room air. HEENT: Normocephalic, atraumatic, otherwise unremarkable. NECK: Supple and negative for carotid bruits, lymphadenopathy, or thyromegaly. LUNGS: Clear to A and P. CARDIOVASCULAR: Regular rate and rhythm. Normal S1, S2. ABDOMEN: Soft. EXTREMITIES: Negative for cyanosis, clubbing, edema. NEUROLOGICAL: Mental status, the patient is drowsy, but a bit arousable. She does not follow any commands. She was resistant to a neurologic examination. However, she moves all her extremities to noxious stimuli. IMPRESSION: 1. Longstanding history of seizure disorder with mental retardation. 2. Urinary tract infections. 3. Hypokalemia with corrected potassium at 3.5 today. RECOMMENDATION: Continue with current management. NIDIA METCALF MD DR: VERA/aly JOB#: [id number] / [id number]
[2018-07-20 06:18] VITALS: BP 154/78
[2018-07-20 06:32] LABS: CREATININE 0.5 mg/dL (0.6-1.0); GFR 124.2; POTASSIUM 3.4 mmol/L (3.5-5.1)
[2018-07-20] MEDS: POTASSIUM CHLORIDE 20 MEQ/15 ML ORAL LIQUID. PO SCH (07:56)
[2018-07-20] MEDS: DOCUSATE 100 MG/10 ML SOLUTION. PO SCH (07:56)
[2018-07-20] MEDS: ENOXAPARIN 40 MG/0.4 ML SYRINGE. SQ SCH (07:56)
[2018-07-20] MEDS: LACTOBACILLUS RHAMNOSUS GG 1 CAPSULE. PO SCH (07:57)
[2018-07-20] MEDS: LACOSAMIDE 50 MG TABLET PO SCH (07:57)
[2018-07-20 10:22] VITALS: BP 140/68
[2018-07-20] MEDS ORDERED: LINE600T PO (10:56)
--- NOTE | 2018-07-20 12:20 | DS ---
DATE OF DISCHARGE: 07/20/2018 HOSPITAL COURSE: The patient is a 63-year-old female patient, a resident at [facility]way, who was admitted with recurrent episodes of breakthrough seizures. She has 3 seizures in a row described by case workers as tonic-clonic in nature. She was found to have urinary tract infection and was started on IV Rocephin. She was admitted and her urine was sent for culture and sensitivity and was started empirically on IV Rocephin; however, her blood culture showed no growth so far and her urine culture showed growth of more than 100,000 colony forming units per mL of coagulase-negative staph species and given that most of the coagulase-negative staph usually responds only to vancomycin does not respond to penicillin. The options are either Zyvox IV, tigecycline, or vancomycin and only Zyvox can be given orally, and therefore, the patient was started on Zyvox 600 mg twice a day and was discharged back to [facility] to continue to finish the treatment as an outpatient and meanwhile to continue with all other medications she is on. PHYSICAL EXAMINATION: GENERAL: When I saw her today, she was resting slightly propped up in bed, in no apparent respiratory distress. She is pale, but no jaundice, cyanosis, or thyromegaly. No jugular venous distention. No limb edema. VITAL SIGNS: Her heart rate was 52, blood pressure was 140/68, temperature was 96.9, and her oxygen saturation was 94%. HEAD, EYES, EARS, NOSE, AND THROAT: Showed normocephalic with helmet in place. NECK: Supple. CARDIAC: Normal first and second heart sounds with no gallop, rub, or murmur. CHEST: Clear to auscultation. No crepitation or rhonchi. ABDOMEN: Scaphoid, soft, nontender. NEUROLOGIC: She is awake, alert, but nonverbal. All her cranial nerves intact. She apparently is mostly bed bound, wheelchair bound. Her intake was 900, no output was recorded as she is incontinent. LABORATORY DATA: Her most recent white cell count was 5700, hemoglobin 13.6, hematocrit 40.7, MCV 91, and platelet count 308,000. Her chemistry showed a serum sodium 143, potassium 3.4, chloride 107, bicarbonate 34, anion gap of 2, BUN of 15, creatinine 0.5, estimated GFR was 124 mL per minute. Her glucose was 85, calcium was 9. Her urinalysis showed the urine was negative for nitrite. There was large amount of leukocyte esterase, 3-5 rbc's, more than 40 wbc's, and moderate amount of bacteria. Her blood cultures, which showed no growth after 48 hours, but the urine culture showed growth of more than 100,000 colony forming units per mL of gram-negative Staphylococcus species. DISCHARGE MEDICATIONS: The patient was discharged back to [facility]-way to continue on following medications: Zyvox 600 mg 3 times a day for 10 days, clonidine, Catapres TTS 1 patch transdermal weekly, Colace 100 mg once a day, lacosamide 200 mg twice a day, levetiracetam 1500 mg twice a day, and Potassium chloride 20 mEq per 15 mL 3 times a day. FINAL DISCHARGE DIAGNOSES: 1. Recurrent seizures. 2. Urinary tract infection with growth of more than 100,000 colony forming units per mL of coagulase-negative Staph species. Other medical problems include cerebral palsy and seizure disorder with mild mental retardation. DENISE ACUÑA MD DR: TULIO/aly JOB#: [id number] / [id number]
--- NOTE | 2018-07-20 14:18 | NUR ---
NSG NOTE;DISCHARGE VERBAL AND WRITTEN DISCHARGE INSTRUCTIONS GIVEN TO PT'S MANAGER DIABETES DISCHARGE TO [facility], THE [facility], AT 1310 VIA W/C ACCOMP BY MANAGER DIABETES
[2018-07-21] MEDS ORDERED: ENOXAPARIN 40 MG/0.4 ML SYRINGE. SQ SCH (09:00)
== END 2018-07-20 13:10 | DRG 100 ==
LOC: ER 18:39 → 1 SOUTH 22:53
PROVIDERS: ADMIT Neuromusculoskeletal Medicine & OMM; ATTEND Neuromusculoskeletal Medicine & OMM
DX: G40.909 Epilepsy, unspecified, not intractable, without status epilepticus (principal); G92 Toxic encephalopathy; N39.0 Urinary tract infection, site not specified; E87.6 Hypokalemia; F70 Mild intellectual disabilities; G80.9 Cerebral palsy, unspecified; B95.8 Unspecified staphylococcus as the cause of diseases classified elsewhere; Z91.14 Patient's other noncompliance with medication regimen; Z86.718 Personal history of other venous thrombosis and embolism; Z79.01 Long term (current) use of anticoagulants; Z87.440 Personal history of urinary (tract) infections; Z79.899 Other long term (current) drug therapy
CPT/HCPCS: 36415; 51701; 70450; 71045; 80048; 80076; 80307; 81001; 82550; 83605; 83690; 83735; 83880; 84132; 84443; 84484; 85025; 85379; 85610; 85651; 85730; 87040; 87086; 87641; 93005; 93971; 96361; 96374; J0696; J1650; J2060; J3480; J7120; 99285-25; G0479

== ENCOUNTER 2018-08-09 16:58 | Emergency (ER) | payer MEDICARE, OTHER ==
[~2018-08-09] VITALS: Ht 167.6 cm; Wt 39.7 kg
[~2018-08-09 16:58] MED LIST changes: +LINE600T PO; +POTA20LI27 PO
--- NOTE | 2018-08-09 18:03 | ED.ADGEN ---
Past History Past Medical History: Dementia, Depression, Seizure, Other Past Surgical History: No Surgical History Smoking: Non-smoker Alcohol Use: None Drug Use: None Adult General Chief Complaint Chief Complaint " She had been on some antibiotic... 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 The patient recently been on some antibiotics after completion of antibiotics developed a pelvic rash. No history of diabetes. Have been using some drying agents on the rash. Has not improved. Patient is a resident of [facility]. Hx of severe developmental delay. Hx. Seizure disorder. Review of Systems Review of Systems Constitutional: Denies fever or chills [] Eyes: Denies change in visual acuity, redness, or eye pain [] HENT: Denies nasal congestion or sore throat [] Respiratory: Denies cough or shortness of breath [] Cardiovascular: No additional information not addressed in HPI [] GI: Denies abdominal pain, nausea, vomiting, bloody stools or diarrhea [] : Denies dysuria or hematuria [] Musculoskeletal: Denies back pain or joint pain [] Integument: Diaper rash Neurologic: Denies headache, focal weakness or sensory changes [] Endocrine: Denies polyuria or polydipsia [] All other systems were reviewed and found to be within normal limits, except as documented in this note. Family History Family History Not currently available Current Medications Current Medications Current Medications Medications (Trade) Dose Ordered Sig/Wm Start Time Stop Time Status Last Admin Dose Admin Fluconazole (Diflucan) 100 mg 1X ONCE 08/09/18 18:15 08/09/18 18:23 DC 08/09/18 18:15 100 MG Allergies Allergies Allergies Coded Allergies Type Severity Reaction Last Updated Verified No Known Drug Allergies 03/10/14 No Physical Exam Physical Exam Constitutional: no acute distress, non-toxic appearance. [] HENT: Normocephalic, atraumatic, bilateral external ears normal, oropharynx moist, no oral exudates, nose normal. []Wearing a helmet Eyes: PERRLA, EOMI, conjunctiva normal, no discharge. [] Neck: Normal range of motion, no tenderness, supple, no stridor. [] Cardiovascular:Heart rate regular rhythm, no murmur [] Lungs & Thorax: Bilateral breath sounds clear to auscultation [] Abdomen: Bowel sounds normal, soft, no tenderness, no masses, no pulsatile masses. [] Rash on peritoneum Skin: Warm, dry, no erythema, fungal rash. [] Back: No tenderness, no CVA tenderness. [] Extremities: No tenderness, no cyanosis, no clubbing, ROM intact, no edema. [] Neurologic: Alert and oriented X 3, normal motor function, normal sensory function, no focal deficits noted. [] Psychologic: Affect flat,mood depressed Current Patient Data Vital Signs Vital Signs Date Time Temp Pulse Resp B/P (MAP) Pulse Ox O2 Delivery O2 Flow Rate FiO2 08/09/18 16:58 97.7 86 24 97 Room Air EKG EKG [] Radiology/Procedures Radiology/Procedures [] Course & Med Decision Making Course & Med Decision Making Pertinent Labs and Imaging studies reviewed. (See chart for details). Change diapers frequently. After washing 4 x day apply A and D ointment. Apply Lotrisone to the rash twice a day. Follow-up primary care. Take Diflucan 120 mg daily for 5 days. Return if any concerns. Follow-up primary care [] Final Impression Final Impression 1. Diaper rash-- Appears Ramona[] Dragon Disclaimer Dragon Disclaimer This electronic medical record was generated, in whole or in part, using a voice recognition dictation system. NATACHA LUCIANO MD Aug 09, 2018 18:02
[2018-08-09] MEDS: FLUCONAZOLE 100 MG TABLET. PO ONE (18:15)
== END 2018-08-09 18:51 | disposition home or self-care (01) ==
LOC: ER 16:58
DX: L22 Diaper dermatitis (principal)
CPT/HCPCS: 99284

== ENCOUNTER 2018-08-11 20:12 | Emergency (ER) | payer MEDICARE, OTHER ==
[~2018-08-11] VITALS: Ht 167.6 cm; Wt 40.5 kg
[2018-08-11] MEDS ORDERED: IV NORMAL SALINE 1,000ML 1,000 ML IV SCH (20:55)
[2018-08-11] MEDS ORDERED: ONDANSETRON PF 4 MG/2 ML VIAL. IV ONE (21:00)
[2018-08-11 21:56] LABS: BASO % 0 % (0-3); EOS % 0 % (0-3); HEMATOCRIT 37.4 % (36.0-47.0); HEMOGLOBIN 12.4 g/dL (12.0-15.5); LYMPH % 8 % (24-48); MEAN CORPUSCULAR HEMOGLOBIN 31 pg (25-35); MEAN CORPUSCULAR HGB CONC 33 g/dL (31-37); MEAN CORPUSCULAR VOLUME 92 fL (79-100); MONO # 0.1 x10^3/uL (0.0-1.1); MONO % 1 % (0-9); NEUT # 11.9 x10^3uL (1.8-7.7); NEUT % 91 % (31-73); PLATELET COUNT 403 x10^3/uL (140-400); RED BLOOD COUNT 4.08 x10^6/uL (3.50-5.40); RED CELL DISTRIBUTION WIDTH 13.3 % (11.5-14.5); WHITE BLOOD COUNT 13.1 x10^3/uL (4.0-11.0)
[2018-08-11 22:09] LABS: ALBUMIN 3.5 g/dL (3.4-5.0); ALBUMIN/GLOBULIN RATIO 0.9 (1.0-1.7); CALCIUM 9.1 mg/dL (8.5-10.1); CREATININE 0.6 mg/dL (0.6-1.0); GFR 100.6; POTASSIUM 4.3 mmol/L (3.5-5.1); TOTAL BILIRUBIN 0.1 mg/dL (0.2-1.0); TOTAL PROTEIN 7.6 g/dL (6.4-8.2)
[2018-08-11 23:38] LABS: BACTERIA,URINE 0 /HPF (0-FEW); BILIRUBIN,URINE NEG (NEG); CLARITY,URINE CLEAR; COLOR,URINE YELLOW; GLUCOSE,URINE NEG (NEG); NITRITE,URINE NEG (NEG); RBC,URINE 0 /HPF (0-2); SQUAMOUS EPITHELIAL CELL,UR OCC /LPF; UROBILINOGEN,URINE 0.2 mg/dL (0.2 mg/dL); WBC,URINE OCC /HPF (0-4)
[2018-08-11] MEDS ORDERED: IV NORMAL SALINE 500ML 500 ML IV ONE (23:45)
--- NOTE | 2018-08-12 00:11 | PHYS DOC ---
Adult General Chief Complaint Chief Complaint vomiting HPI HPI History was taken from the caregiver who stated this 63 years old female was transferred to the emergency department for multiple vomiting episodes that happened today patient is not vomiting and emergency department she is unable to answer any question Review of Systems Review of Systems Review of system is limited due to patient status Current Medications Current Medications Current Medications Medications (Trade) Dose Ordered Sig/Wm Start Time Stop Time Status Last Admin Dose Admin Ondansetron HCl (Zofran) 4 mg 1X ONCE 08/11/18 21:00 08/11/18 21:01 DC 08/11/18 21:29 4 MG Sodium Chloride 500 ml @ 500 mls/hr 1X ONCE 08/11/18 23:45 08/12/18 00:44 08/11/18 23:32 500 MLS/HR Allergies Allergies Allergies Coded Allergies Type Severity Reaction Last Updated Verified No Known Drug Allergies 03/10/14 No Physical Exam Physical Exam Constitutional: no acute distress, non-toxic appearance. [] HENT: Normocephalic, atraumatic, bilateral external ears normal, oropharynx moist, no oral exudates, nose normal. [] Eyes: PERRLA, EOMI, conjunctiva normal, no discharge. [] Neck: Normal range of motion, no tenderness, supple, no stridor. [] Cardiovascular:Heart rate regular rhythm, no murmur [] Lungs & Thorax: Bilateral breath sounds clear to auscultation [] Abdomen: Bowel sounds normal, soft, no tenderness, no masses, no pulsatile masses. [] Skin: Warm, dry, no erythema, no rash. [] Back: No tenderness, no CVA tenderness. [] Extremities: No tenderness, no cyanosis, no clubbing, ROM intact, no edema. [] Current Patient Data Vital Signs Vital Signs Date Time Temp Pulse Resp B/P (MAP) Pulse Ox O2 Delivery O2 Flow Rate FiO2 08/11/18 20:43 95.9 54 16 99 Room Air Lab Results Laboratory Tests Test 08/11/18 21:40 08/11/18 23:14 White Blood Count 13.1 x10^3/uL (4.0-11.0) H Red Blood Count 4.08 x10^6/uL (3.50-5.40) Hemoglobin 12.4 g/dL (12.0-15.5) Hematocrit 37.4 % (36.0-47.0) Mean Corpuscular Volume 92 fL (79-100) Mean Corpuscular Hemoglobin 31 pg (25-35) Mean Corpuscular Hemoglobin Concent 33 g/dL (31-37) Red Cell Distribution Width 13.3 % (11.5-14.5) Platelet Count 403 x10^3/uL (140-400) H Neutrophils (%) (Auto) 91 % (31-73) H Lymphocytes (%) (Auto) 8 % (24-48) L Monocytes (%) (Auto) 1 % (0-9) Eosinophils (%) (Auto) 0 % (0-3) Basophils (%) (Auto) 0 % (0-3) Neutrophils # (Auto) 11.9 x10^3uL (1.8-7.7) H Lymphocytes # (Auto) 1.0 x10^3/uL (1.0-4.8) Monocytes # (Auto) 0.1 x10^3/uL (0.0-1.1) Eosinophils # (Auto) 0.0 x10^3/uL (0.0-0.7) Basophils # (Auto) 0.0 x10^3/uL (0.0-0.2) Sodium Level 145 mmol/L (136-145) Potassium Level 4.3 mmol/L (3.5-5.1) Chloride Level 109 mmol/L (98-107) H Carbon Dioxide Level 31 mmol/L (21-32) Anion Gap 5 (6-14) L Blood Urea Nitrogen 20 mg/dL (7-20) Creatinine 0.6 mg/dL (0.6-1.0) Estimated GFR (Cockcroft-Gault) 100.6 BUN/Creatinine Ratio 33 (6-20) H Glucose Level 122 mg/dL (70-99) H Calcium Level 9.1 mg/dL (8.5-10.1) Total Bilirubin 0.1 mg/dL (0.2-1.0) L Aspartate Amino Transferase (AST) 24 U/L (15-37) Alanine Aminotransferase (ALT) 29 U/L (14-59) Alkaline Phosphatase 192 U/L (46-116) H Total Protein 7.6 g/dL (6.4-8.2) Albumin 3.5 g/dL (3.4-5.0) Albumin/Globulin Ratio 0.9 (1.0-1.7) L Lipase 235 U/L (73-393) Urine Collection Type U cath Urine Color Yellow Urine Clarity Clear Urine pH 7.0 Urine Specific [place] 1.015 Urine Protein Neg (NEG-TRACE) Urine Glucose (UA) Neg mg/dL (NEG) Urine Ketones (Stick) Neg mg/dL (NEG) Urine Blood Neg (NEG) Urine Nitrite Neg (NEG) Urine Bilirubin Neg (NEG) Urine Urobilinogen Dipstick 0.2 mg/dL (0.2 mg/dL) Urine Leukocyte Esterase Neg (NEG) Urine RBC 0 /HPF (0-2) Urine WBC Occ /HPF (0-4) Urine Squamous Epithelial Cells Occ /LPF Urine Bacteria 0 /HPF (0-FEW) EKG EKG [] Radiology/Procedures Radiology/Procedures [] Course & Med Decision Making Course & Med Decision Making Pertinent Labs and Imaging studies reviewed. (See chart for details) [] Final Impression Final Impression Emergency department patient did not vomit she received IV fluids, Zofran she was discharged home in fair stable condition[] Problems: (1) Vomiting Qualifiers: Dragon Disclaimer Dragon Disclaimer This electronic medical record was generated, in whole or in part, using a voice recognition dictation system. PRAVEEN DE LEON MD Aug 12, 2018 00:11
[2018-08-12] MEDS ORDERED: ONDA4TAB10 SL (00:23)
[2018-08-12 00:41] VITALS: BP 156/73
--- NOTE | 2018-08-12 07:47 | RAD ---
Portable chest, 08/11/2018: HISTORY: Cough, cerebral palsy Comparison is made to a study from 07/17/2018. The patient is rotated to the right. The heart size and pulmonary vascularity are normal. There is chronic elevation of the right hemidiaphragm. No acute infiltrate is seen. There is no evidence of pleural fluid. IMPRESSION: No acute cardiopulmonary abnormality is detected. Electronically signed by: Rubén Fernandez MD (08/12/2018 7:43 AM) [facility]
== END 2018-08-12 00:54 | disposition home or self-care (01) ==
LOC: ER 20:12
DX: R11.10 Vomiting, unspecified (principal)
CPT/HCPCS: 36415; 71045; 80053; 81001; 83690; 85025; 96361; 96374; 99285; J2405; J7040; P9612; J7030

== ENCOUNTER 2020-11-11 20:57 | Emergency (ER) | payer MEDICARE, OTHER ==
[~2020-11-11] VITALS: Ht 167.6 cm; Wt 43.8 kg
[~2020-11-11 20:57] MED LIST changes: +CLON1TAB11 PO; -CLON1TAB4 PO; -LACO10SO PO; +LACO10SO3 PO; -LINE600T PO; +LINE600T12 PO; +LOPE1LIQ PO; -LOPE1LIQ11 PO; -POLY255P PO; +POLY255P11 PO
--- NOTE | 2020-11-11 21:40 | PHYS DOC ---
Past History Past Medical History: Seizure Additional Past Medical Histor: mental dissablilites Past Surgical History: No Surgical History Smoking: Non-smoker Alcohol Use: None Drug Use: None Adult General Chief Complaint Chief Complaint: FEVER HPI HPI Patient is a 65-year-old female with a past medical history significant for severe cerebral palsy and is nonverbal who presents from her assisted nursing facility for chief complaint of fever, cough and possible exposure to Covid. The facility and her healthcare workers state that 2 of her healthcare workers have been tested positive for Covid over the last couple of weeks and over the last several days the patient has had a cough and had a fever today. Facility and healthcare workers endorsed no traumas, and patient appears otherwise at b aseline mentation for her which is nonverbal, usually curled up in a ball but will move all extremities when annoyed. Review of Systems Review of Systems Unable to obtain review of systems as patient has cerebral palsy and is nonverbal. Was told from healthcare workers in assisted living staff that she has had a cough and fever. Current Medications Current Medications Current Medications Medications (Trade) Dose Ordered Sig/Wm Start Time Stop Time Status Last Admin Dose Admin Lactated Ringer's 880 ml @ 880 mls/hr 1X ONCE 11/11/20 21:45 11/11/20 22:44 UNV Midazolam HCl (Versed) 2 mg 1X ONCE 11/11/20 21:45 11/11/20 21:46 UNV Allergies Allergies Allergies Coded Allergies Type Severity Reaction Last Updated Verified No Known Drug Allergies 03/10/14 No Physical Exam Physical Exam Constitutional: Patient nonverbal, appears agitated but no noticeable injuries HENT: Normocephalic, atraumatic, oropharynx dry. Ears with some cerumen but no apparent ear infections Eyes: PERRLA, conjunctiva normal, no discharge. [] Neck: Normal range of motion, supple, no stridor. [] Cardiovascular:Heart rate regular rhythm, no murmur [] Lungs & Thorax: Patient's O2 sat is appropriate on room air however patient does appear to be taking shallow breaths and does have some mild rhonchi globally Abdomen: Bowel sounds normal, soft, no masses, no pulsatile masses. Does not appear to be tender when palpated [] Skin: Warm, dry, no erythema, no rash. [] Extremities: no cyanosis, no clubbing, ROM intact, no edema. [] Neurologic: Patient eyes are open and is moving all extremities which is reported to be baseline by healthcare workers and assisted-living staff. Current Patient Data Vital Signs Vital Signs Date Time Temp Pulse Resp B/P (MAP) Pulse Ox O2 Delivery O2 Flow Rate FiO2 11/11/20 20:57 102.1 86 18 131/68 (89) 95 Room Air Lab Results Laboratory Tests Test 11/11/20 22:50 11/11/20 22:55 White Blood Count 7.0 x10^3/uL (4.0-11.0) Red Blood Count 4.65 x10^6/uL (3.50-5.40) Hemoglobin 14.2 g/dL (12.0-15.5) Hematocrit 42.2 % (36.0-47.0) Mean Corpuscular Volume 91 fL (79-100) Mean Corpuscular Hemoglobin 31 pg (25-35) Mean Corpuscular Hemoglobin Concent 34 g/dL (31-37) Red Cell Distribution Width 12.2 % (11.5-14.5) Platelet Count 228 x10^3/uL (140-400) Neutrophils (%) (Auto) 82 % (31-73) Lymphocytes (%) (Auto) 8 % (24-48) Monocytes (%) (Auto) 9 % (0-9) Eosinophils (%) (Auto) 0 % (0-3) Basophils (%) (Auto) 1 % (0-3) Neutrophils # (Auto) 5.7 x10^3uL (1.8-7.7) Lymphocytes # (Auto) 0.6 x10^3/uL (1.0-4.8) Monocytes # (Auto) 0.7 x10^3/uL (0.0-1.1) Eosinophils # (Auto) 0.0 x10^3/uL (0.0-0.7) Basophils # (Auto) 0.0 x10^3/uL (0.0-0.2) Sodium Level 141 mmol/L (136-145) Potassium Level 3.0 mmol/L (3.5-5.1) Chloride Level 103 mmol/L (98-107) Carbon Dioxide Level 27 mmol/L (21-32) Anion Gap 11 (6-14) Blood Urea Nitrogen 15 mg/dL (7-20) Creatinine 0.5 mg/dL (0.6-1.0) Estimated GFR (Cockcroft-Gault) 123.4 BUN/Creatinine Ratio 30 (6-20) Glucose Level 98 mg/dL (70-99) Lactic Acid Level 0.9 mmol/L (0.4-2.0) Calcium Level 8.4 mg/dL (8.5-10.1) Total Bilirubin 0.3 mg/dL (0.2-1.0) Aspartate Amino Transf (AST/SGOT) 26 U/L (15-37) Alanine Aminotransferase (ALT/SGPT) 29 U/L (14-59) Alkaline Phosphatase 163 U/L (46-116) Total Protein 7.7 g/dL (6.4-8.2) Albumin 4.1 g/dL (3.4-5.0) Albumin/Globulin Ratio 1.1 (1.0-1.7) Influenza Type A (Rapid) Negative (NEGATIVE) Influenza Type B (Rapid) Negative (NEGATIVE) SARS-CoV-2 Antigen (Rapid) Negative (NEGATIVE) EKG EKG [] Radiology/Procedures Radiology/Procedures []FINDINGS: The heart is not enlarged. Aorta is tortuous. Trace right pleural effusion. Minimal patchy opacities right lung base likely atelectasis. Decreased bone mineral density. No pneumothorax. IMPRESSION: Minimal patchy opacities right lung base likely atelectasis Electronically signed by: Shamir El MD (11/12/2020 1:29 AM) [facility] Heart [facility] Risk Factors: Risk Factors: DM, Current or recent (<one month) smoker, HTN, HLP, family history of CAD, obesity. Risk Scores: Risk Factors: DM, Current or recent (<one month) smoker, HTN, HLP, family history of CAD, obesity. Course & Med Decision Making Course & Med Decision Making Patient is a 65-year-old female with cerebral palsy and nonverbal who presents from assisted living with a couple of days of cough, fever and Covid exposure Vital signs notable for fever. Physical exam noted above. Patient placed on a monitor with IV access established, IV fluid given. Rectal Tylenol given. Given small dose of midazolam for anxiolysis to allow appropriate work-up. Laboratory analysis not concerning. Flu negative. Covid negative. Chest x-ray above with a small amount of right lower/base atelectasis and a tiny pleural effusion, felt to be more atelectasis by radiologist. Patient's diaper was full of urine on arrival that had a strong odor and dark color. This could also be a source of her fever. On attempt to fluid hydrate and get urine patient still was unable to give urine. [employer] patient has cerebral palsy, is bedbound, and unable to communicate felt it was reasonable to go ahead and treat patient for a respiratory infection and urinary tract infection coca mentally with Levaquin. Started antibiotics in the ED. Patient's vital signs otherwise normal, no Covid, no flu, otherwise normal labs and patient at baseline mentation per staff felt it was safe to send her back to her assisted living with her antibiotics. Gave instructions for assisted living staff on follow-up and return to the ED. [] Dragon Disclaimer Dragon Disclaimer This electronic medical record was generated, in whole or in part, using a voice recognition dictation system. Departure Departure: Impression: Primary Impression: Abnormal chest x-ray Additional Impression: Fever Disposition: 03 DC/TRF TO SNF Condition: GOOD Referrals: SHABANA LIZ (PCP) Scripts Levofloxacin (LEVOFLOXACIN) 750 Mg Tablet 1 TAB PO DAILY for pna for 5 Days, #5 TAB Prov: MEERA MTZ MD 11/12/20 Problem Qualifiers MEERA MTZ MD Nov 11, 2020 21:40
[2020-11-11] MEDS ORDERED: ACETAMINOPHEN 650 MG SUPP.RECT. PR ONE (22:00)
[2020-11-11] MEDS ORDERED: RINGERS LACTATED IV ONE (22:00)
[2020-11-11] MEDS ORDERED: MIDAZOLAM HCL PF 5 MG/5 ML VIAL. IM ONE (22:00)
[2020-11-11 23:14] LABS: BASO % 1 % (0-3); EOS % 0 % (0-3); HEMATOCRIT 42.2 % (36.0-47.0); HEMOGLOBIN 14.2 g/dL (12.0-15.5); LYMPH # 0.6 x10^3/uL (1.0-4.8); LYMPH % 8 % (24-48); MEAN CORPUSCULAR HEMOGLOBIN 31 pg (25-35); MEAN CORPUSCULAR HGB CONC 34 g/dL (31-37); MEAN CORPUSCULAR VOLUME 91 fL (79-100); MONO # 0.7 x10^3/uL (0.0-1.1); MONO % 9 % (0-9); NEUT # 5.7 x10^3uL (1.8-7.7); NEUT % 82 % (31-73); PLATELET COUNT 228 x10^3/uL (140-400); RED BLOOD COUNT 4.65 x10^6/uL (3.50-5.40); RED CELL DISTRIBUTION WIDTH 12.2 % (11.5-14.5)
[2020-11-11 23:26] LABS: ALBUMIN 4.1 g/dL (3.4-5.0); ALBUMIN/GLOBULIN RATIO 1.1 (1.0-1.7); CALCIUM 8.4 mg/dL (8.5-10.1); CREATININE 0.5 mg/dL (0.6-1.0); GFR 123.4; TOTAL BILIRUBIN 0.3 mg/dL (0.2-1.0); TOTAL PROTEIN 7.7 g/dL (6.4-8.2)
[2020-11-11 23:53] LABS: INFLUENZA A PATIENT NEGATIVE (NEGATIVE); INFLUENZA B PATIENT NEGATIVE (NEGATIVE)
--- NOTE | 2020-11-12 01:33 | RAD ---
EXAM: AP View of the chest DATE: 11/12/2020 12:54 AM INDICATION: Congestion, cough COMPARISON: 08/11/2018, 07/17/18 FINDINGS: The heart is not enlarged. Aorta is tortuous. Trace right pleural effusion. Minimal patchy opacities right lung base likely atelectasis. Decreased bone mineral density. No pneumothorax. IMPRESSION: Minimal patchy opacities right lung base likely atelectasis Electronically signed by: Shamir El MD (11/12/2020 1:29 AM) [facility]
[2020-11-12] MEDS ORDERED: LEVO750T5 PO (01:48)
[2020-11-12] MEDS ORDERED: cefTRIAXone SODIUM 1 GM VIAL ONE (02:01)
[2020-11-12 02:10] VITALS: BP 169/92
== END 2020-11-12 02:25 | disposition home or self-care (01) ==
LOC: ER 20:57
DX: U07.1 COVID-19 (principal); R93.1 Abnormal findings on diagnostic imaging of heart and coronary circulation; R50.9 Fever, unspecified
CPT/HCPCS: 36415; 71045; 80053; 83605; 85025; 87040; 87426; 87804; 96361; 96372; 96374; 99285; C9803; J0696; J2250; J7120; P9612; U0003